=== PATIENT | female | born 1950 | race Caucasian/White ===

== ENCOUNTER 2019-11-01 08:23 | Outpatient (CLI) | payer MEDICARE, SELFPAY ==
[2019-11-05 04:49] LABS: Carcinoembryonic Antigen 0.6 ng/mL (0.0-2.4)
== END 2019-11-01 08:24 | disposition home or self-care (01) ==
PROVIDERS: PCP Internal Medicine
DX: C18.2 Malignant neoplasm of ascending colon (principal)
CPT/HCPCS: 36415; 82378

== ENCOUNTER 2020-02-06 07:43 | Outpatient (CLI) | payer MEDICARE, SELFPAY ==
[2020-02-06 07:57] LABS: Add Urine Microscopic? YES; Appearance Urine Clear (Clear); Bilirubin Urine Negative (Negative); Blood Urine Negative (Negative); Color Urine Yellow (Yellow); Glucose Urine UA Negative (Negative); Ketones Urine Trace (Negative); Leukocyte Esterase Ur 1+ (Negative); Nitrate Urine Negative (Negative); Protein Urine Negative (Negative); Specific Grav Ur >= 1.030 (1.010-1.020); Urobilinogen Urine 0.2 mg/dL (0.2-1.0)
[2020-02-06 07:57] LABS: Basophils Absolute Auto 0.03 K/mm3 (0.00-0.10); Basophils Percent Auto 0.4 % (0.0-1.0); Eosinophils Absolute Auto 0.08 K/mm3 (0.02-0.50); Eosinophils Percent Auto 1.2 % (1.0-6.0); Hematocrit 41.5 % (35.0-42.0); Hemoglobin 14.2 g/dL (11.7-13.8); Immature Granulocyte Absolute 0.02 K/mm3 (0.00-0.00); Immature Granulocyte Percent A 0.3 % (0.0-0.0); Lymphocytes Absolute Auto 1.68 K/mm3 (1.10-4.50); Lymphocytes Percent Auto 24.7 % (18.0-42.0); Mean Corpuscular HGB Conc 34.2 g/dL (32.0-36.0); Mean Corpuscular Hemoglobin 32.3 pg (27.0-31.0); Mean Corpuscular Volume 94.5 fL (78.0-102.0); Mean Platelet Volume 9.7 fl (9.2-11.8); Monocytes Absolute Auto 0.52 K/mm3 (0.10-0.90); Monocytes Percent Auto 7.7 % (2.0-11.0); Neutrophils Absolute Auto 4.5 K/mm3 (1.7-7.2); Neutrophils Percent Auto 65.7 % (50.0-70.0); Platelet Count Result 194 K/mm3 (150-420); Red Blood Count 4.39 M/mm3 (4.20-5.40); Red Cell Distribution Width 11.6 % (11.6-14.4); White Blood Count 6.8 K/mm3 (4.8-10.8)
[2020-02-06 08:01] LABS: Bacteria Urine 1+ /hpf; RBC Urine 0-2 /hpf (0-2); Squamous Epithelial Cell Urine Moderate /hpf (Few)
[2020-02-06 08:02] LABS: Mucus Urine Moderate /lpf
[2020-02-06 08:19] LABS: Creatinine Urine 286.11 mg/dL (40-278); MALB Creatinine Ratio 6.7 mg/g (0-30); Microalbumin Urine Random 19.4 mg/L
[2020-02-06 08:49] LABS: Alanine Aminotransferase 37 U/L (14-59); Albumin Level 4.2 g/dL (3.4-5.0); Alkaline Phosphatase 82 U/L (46-116); Anion Gap 10.4 mmol/L (7-16); Aspartate Amino Transferase 20 U/L (15-37); Blood Urea Nitrogen 16 mg/dL (7-18); Calcium 9.3 mg/dL (8.5-10.1); Carbon Dioxide 31 mmol/L (21-32); Chloride 105 mmol/L (98-108); Cholesterol 149 mg/dL (0-200); Estimated Glomerular Filt Rate 60; Glucose 172 mg/dL (70-99); HDL Direct 45 mg/dL (40-60); LDL Cholesterol Calculated 69 mg/dL (<130); Osmolality Calculated 299 mOsm/kg (285-295); Potassium 4.4 mmol/L (3.5-5.1); Sodium 142 mmol/L (136-145); Total Protein 7.2 g/dL (6.4-8.2); Triglycerides 176 mg/dL (0-150)
[2020-02-11 20:16] LABS: Carcinoembryonic Antigen 0.7 ng/mL (0.0-2.4)
== END 2020-02-06 07:44 | disposition home or self-care (01) ==
LOC: CHSLAB 07:46
PROVIDERS: PCP Internal Medicine
DX: C18.2 Malignant neoplasm of ascending colon (principal); E11.9 Type 2 diabetes mellitus without complications; I10 Essential (primary) hypertension; C18.9 Malignant neoplasm of colon, unspecified
CPT/HCPCS: 36415; 80053; 80061; 81001; 82043; 82378; 83036; 85025

== ENCOUNTER 2020-02-29 13:03 | Outpatient (CLI) | payer MEDICARE, SELFPAY ==
--- NOTE | ~2020-02-29 | MM_ITS ---
EXAMINATION: MM screening juan c BI w des HISTORY: Screening TECHNIQUE: Craniocaudal and mediolateral oblique 3-D tomosynthesis images were obtained and synthetic 2-D images were generated. CAD analysis was submitted and interpreted. COMPARISON: Comparison to multiple prior studies sequentially, with oldest reviewed study dated 04/25. BREAST PARENCHYMAL COMPOSITION: There are scattered areas of fibroglandular density. FINDINGS: The right breast is stable without evidence for malignancy. There are developing nodular de nsities in the subareolar location of the left breast. IMPRESSION: 1. Nodular left breast asymmetries have developed in the subareolar location. 2. Additional mammographic views and possible breast ultrasound are recommended. BI-RADS Category 0: Incomplete: Needs additional imaging evaluation. Reviewed, dictated and finalized at location A. IMPRESSION: 1. Nodular left breast asymmetries have developed in the subareolar location. 2. Additional mammographic views and possible breast ultrasound are recommended . BI-RADS Category 0: Incomplete: Needs additional imaging evaluation.
== END 2020-02-29 13:04 | disposition home or self-care (01) ==
LOC: CHSIMG 13:06
PROVIDERS: PCP Internal Medicine; Visit Provider Internal Medicine
DX: Z12.31 Encounter for screening mammogram for malignant neoplasm of breast (principal)
CPT/HCPCS: 77063; 77067

== ENCOUNTER 2020-04-11 09:50 | Outpatient (CLI) | payer MEDICARE, SELFPAY ==
--- NOTE | ~2020-04-11 | MMUS_ITS ---
EXAMINATION: MM diagnostic juan c LT w des, US breast LT complete HISTORY: Nodule left breast asymmetries on screening mammogram of 02/29/2020 TECHNIQUE: Additional 3-D tomosynthesis images of the left breast were performed and synthetic 2-D im ages were generated. Rolled medial craniocaudal and rolled lateral craniocaudal views. CAD analysis w as submitted and interpreted. High resolution complete left breast ultrasound was performed. COMPARISON: 02/29/2020 bilateral digital screening mammogram FINDINGS: MAMMOGRAPHIC FINDINGS: Surgical clips are present in the posterior aspect of the upper outer quadrant of the left breast. There is nodularity of the stroma throughout the left breast. Small masses are not excluded. Left irina ast ultrasound examination was performed. ULTRASOUND: 2:00 2 cm from nipple: Parallel circumscribed 1.7 x 2.6 mm x 4.3 mm hypoechoic area without internal vascularity or posterior shadowing. Postoperative change is noted at 2:00 area. There is an irregular up to 3.3 x 8.3 mm hypoechoic mass with shadowing at 4:00 2 cm from the nipple. Ultrasound-guided biopsy is recommended. 4:00 2 cm from nipple: 3.6 x 2.6 x 4.1 mm cyst 4:00 2 cm from nipple: 2.6 x 1.9 mm cyst 9:00 1 cm from nipple: Elongated septated complicated cyst measuring 2.7 x 11.5 x 8.4 mm 10:00 3 cm from nipple: 3.7 x 2.1 x 1.8 mm circumscribed hypoechoic lesion without internal vasculari ty or suspicious shadowing 11:00 3 cm from nipple: 5.5 x 6.2 mm cyst 11:00 3 cm from nipple: 2.7 x 4.4 mm complicated cyst IMPRESSION: 1. Irregular 3.3 x 8.3 mm hypoechoic mass with shadowing at 4:00 2 cm from nipple; 2. Ultrasound-guided biopsy is recommended BI-RADS category 4, suspicious findings. Dr. Amado telephoned the report and ultrasound guided biopsy recommendation of left breast at 4:00 pos ition to [place] at Dr. Erwin's office on 04/11/2020 at 1138 hours Reviewed, dictated and finalized at location A. IMPRESSION: 1. Irregular 3.3 x 8.3 mm hypoechoic mass with shadowing at 4:00 2 cm from nipp le; 2. Ultrasound-guided biopsy is recommended BI-RADS category 4, suspicious findings. Dr. Amado telephoned the report and ultrasound guided biopsy recommendation of l eft breast at 4:[address] [place] [address] Erwin's office on 04/11/2020 at 1138 hours
== END 2020-04-11 09:51 | disposition home or self-care (01) ==
LOC: CHSIMG 09:52
PROVIDERS: PCP Internal Medicine; Visit Provider Internal Medicine
DX: R92.8 Other abnormal and inconclusive findings on diagnostic imaging of breast (principal)
CPT/HCPCS: 76641; 77061; 77065; G0279

== ENCOUNTER 2020-05-01 08:48 | Outpatient (CLI) | payer MEDICARE, SELFPAY ==
--- NOTE | ~2020-05-01 | US_ITS ---
US breast LT limited 05/01/2020 09:46 Indication: Left breast mass seen on prior examination at 4:00, 2 cm from the nipple Procedure: High-resolution Limited left breast ultrasound Comparison: 04/11/2020 Findings: The hypoechoic structure of the left breast at 4:00, 2 cm from the nipple is no longer iden tified on the current study. No discrete mass is identified for biopsy purposes. Impression: 1: No residual mass in the left breast at 4:00 for biopsy. Short-term follow-up diagnostic left mammo gram and possible ultrasound recommended. BI-RADS CATEGORY 3-PROBABLY BENIGN FINDING RECOMMENDATION: 6 month follow up recommended. Reviewed, dictated and finalized at location A. Impression: 1: No residual mass in the left breast at 4:00 for biopsy. Short-term follow-up diagnostic left mammogram and possible ultrasound recommended. BI-RADS CATEGORY 3-PROBABLY BENIGN FINDING RECOMMENDATION: 6 month follow up recommended.
== END 2020-05-01 08:49 | disposition home or self-care (01) ==
PROVIDERS: PCP Internal Medicine; Visit Provider Internal Medicine
DX: N63.20 Unspecified lump in the left breast, unspecified quadrant (principal); R92.8 Other abnormal and inconclusive findings on diagnostic imaging of breast
CPT/HCPCS: 76642

== ENCOUNTER 2020-07-15 14:20 | Outpatient (CLI) | payer MEDICARE, SELFPAY ==
--- NOTE | ~2020-07-15 | XR_ITS ---
EXAMINATION: XR knee LT min 4V DATE: 07/15/2020 14:41 INDICATION: Left knee pain. TECHNIQUE: 4 views of left knee were obtained. COMPARISON: None. FINDINGS: Bone alignment is normal. No fracture. There is moderate osteoarthritis of medial and ospina lofemoral compartments and mild osteoarthritis of lateral compartment. No knee joint effusion. IMPRESSION: 1. Moderate left knee osteoarthritis. Reviewed, dictated and finalized at location A. FIRER HELPER
== END 2020-07-15 14:21 | disposition home or self-care (01) ==
LOC: CHSIMG 14:22
PROVIDERS: PCP Internal Medicine; Visit Provider Internal Medicine
DX: M25.562 Pain in left knee (principal)
CPT/HCPCS: 73564

== ENCOUNTER 2020-08-02 07:16 | Outpatient (CLI) | payer MEDICARE, SELFPAY ==
--- NOTE | ~2020-08-02 | MR_ITS ---
EXAMINATION: MR knee LT wo con DATE: 08/02/2020 08:42 INDICATION: Left knee pain TECHNIQUE: Magnetic resonance imaging (MRI) of the left knee was performed without intravenous contra st. Sequences included coronal PD-weighted FSE, coronal PD-weighted FS FSE, sagittal T2-weighted FSE , sagittal PD-weighted FS FSE and axial PD weighted fat saturated FSE. COMPARISON: Left knee radiographs dated 07/15/2020 FINDINGS: Medial compartment: Likely complex tear with predominant for near full-thickness radial component at the anterior body of the medial meniscus. Partial-thickness cartilage loss which appears to involve greater than 50% the cartilage thickness with mild chondral surface regular date but without degenerative subchondral españa ges at the anterior to central weightbearing medial femoral condyle. Lateral compartment: Lateral meniscus is normal. There is a partial-thickness chondral fissuring at the anterior weightbea ring lateral femoral condyle. Patellofemoral compartment: Deep chondral ulceration with underlying cortical irregularity and subarticular edema at the inferior aspect of the medial trochlea extending across the trochlear groove to the medial side of the latera l trochlea. Partial-thickness patellar cartilage loss with deep fissuring but without degenerative fuentes bchondral changes. Ligaments and tendons: Anterior and posterior cruciate ligaments are normal. The medial collateral ligament and fibular gretchen ateral ligament complex are normal. Mild distal quadriceps and proximal patellar tendinopathy with sm all patellar enthesophytes. The visualized medial and lateral hamstring tendons as well as the ilioti bial band are normal. Fluid: Physiologic amount of fluid in the joint space. No loose osteochondral bodies identified. Small James 's cyst. Osseous/other: 10 mm enchondroma with typical T2 hyperintense cluster of grape like appearance and with small amount of chondroid matrix evident on the radiographs. A couple small bone islands at the medial femoral co ndyle.. No fracture or other pathologic marrow replacing process. IMPRESSION: 1. Tear, likely complex/radial at the anterior body the medial meniscus. 2. Moderate patellofemoral and to lesser degree medial compartment osteoarthritis with high-grade tro chlear chondromalacia. 3. Small James's cyst. Reviewed, dictated and finalized at location A. ISION AGRONOMIST IMPRESSION: 1. Tear, likely complex/radial at the anterior body the medial meniscus. 2. Moderate patellofemoral and to lesser degree medial compartment osteoarthrit is with high-grade trochlear chondromalacia. 3. Small James's cyst.
== END 2020-08-02 07:17 | disposition home or self-care (01) ==
LOC: CHSIMG 07:17
PROVIDERS: PCP Internal Medicine; Visit Provider Internal Medicine
DX: M25.562 Pain in left knee (principal)
CPT/HCPCS: 73721

== ENCOUNTER 2020-08-26 05:00 | Outpatient (RCR) | payer MEDICARE, SELFPAY ==
--- NOTE | 2020-08-27 07:05 | PTOPEVAL ---
Thank you for referring Trish Monique to [facility].? The patient is scheduled to be seen for therapy? ____x/week for ___ weeks. Please review, sign, date and return this plan of care BOB. I agree with and certify that the following plan of care is medically necessary. Referring Physician Date Admitting Provider: Attending Provider: Hang Mcneil MD Referring Provider: *PT Outpatient Evaluation Start: 08/26/20 17:08 Freq: Status: Active Protocol: Document 08/26/20 17:05 Jaiden (Rec: 08/26/20 17:53 [facility] [id number]) Therapy Assessment Status Assessment Status Assessment Status Evaluation Evaluation Information Problem Diagnosis L knee pain, meniscus tear, OA Onset 07/02/20 Additional Evaluation Detail LEFS = 52% functionally declined Subjective Information patient reports she injured Query Text:As Reported By Patient/ her knee about 2 months ago. Family she reports sh was doing house work and a dining room chair hit her kn the knee and her knee buckled on her. she reports she waited a few weeks post injury before havin an x -ray. she reports she then took prednisone which did not help. she reports she then had an MRI which revealed a torn meniscus. patient reports she then saw a specialist. she reports she had an injection yesterday and is feeling much better. patient reports she follows up with the MD in 6 weeks. patient reports prior to injection, she had increased pain with walking and standing activities, especially any increased time participating in these activities. Prior Level of Function Comments Additional Prior Level of Function prior to injury at home, she Comments reports no issues. she reports she is still working. she reports she was limping for a few months after injury until injection yesterday. Pain Assessment Timing of Pain Assessment Timing of Pain Assessment Assessment Pain Scale Pain Scale Used Numeric (1 - 10) Self Report Pain Assessment Left K
== END 2020-09-04 10:19 | disposition home or self-care (01) ==
LOC: CHSPT 05:00
PROVIDERS: PCP Internal Medicine; Visit Provider Orthopaedic Surgery
DX: M17.12 Unilateral primary osteoarthritis, left knee (principal); S83.242A Other tear of medial meniscus, current injury, left knee, initial encounter
CPT/HCPCS: 97110; 97161; 97530

== ENCOUNTER 2020-09-19 11:11 | Outpatient (CLI) | payer MEDICARE, SELFPAY ==
[2020-09-19 11:30] LABS: Hemoglobin A1C 6.7 % (<5.7)
[2020-09-19 13:48] LABS: Alanine Aminotransferase 42 U/L (14-59); Albumin Level 4.6 g/dL (3.4-5.0); Alkaline Phosphatase 88 U/L (46-116); Anion Gap 6 mmol/L (8-16); Aspartate Amino Transferase 15 U/L (15-37); Bilirubin,Total 1.3 mg/dL (0.00-1.00); Blood Urea Nitrogen 19 mg/dL (7-18); Calcium 9.5 mg/dL (8.5-10.1); Carbon Dioxide 32 mmol/L (21-32); Chloride 102 mmol/L (98-108); Cholesterol 173 mg/dL (0-200); Estimated Glomerular Filt Rate 57; Glucose 172 mg/dL (70-99); HDL Direct 50 mg/dL (40-60); LDL Cholesterol Calculated 88 mg/dL (<130); Osmolality Calculated 296 mOsm/kg (285-295); Potassium 4.6 mmol/L (3.5-5.1); Sodium 140 mmol/L (136-145); Thyroid Stimulating Hormone 1.35 uIU/mL (0.36-3.74); Total Protein 7.4 g/dL (6.4-8.2); Triglycerides 174 mg/dL (0-150)
== END 2020-09-19 11:12 | disposition home or self-care (01) ==
LOC: CHSLAB 11:14
PROVIDERS: PCP Internal Medicine; Visit Provider Internal Medicine
DX: E11.9 Type 2 diabetes mellitus without complications (principal); I10 Essential (primary) hypertension
CPT/HCPCS: 36415; 80053; 80061; 83036; 84443

== ENCOUNTER 2021-07-03 12:00 | Outpatient (CLI) | payer MEDICARE, SELFPAY ==
[2021-07-03 12:46] LABS: Alanine Aminotransferase 38 U/L (14-59); Albumin Level 4.5 g/dL (3.4-5.0); Alkaline Phosphatase 97 U/L (46-116); Anion Gap 9 mmol/L (8-16); Aspartate Amino Transferase 17 U/L (15-37); Bilirubin,Total 1.1 mg/dL (0.00-1.00); Blood Urea Nitrogen 18 mg/dL (7-18); Calcium 9.6 mg/dL (8.5-10.1); Carbon Dioxide 31 mmol/L (21-32); Chloride 103 mmol/L (98-108); Estimated Glomerular Filt Rate 58; Glucose 129 mg/dL (70-99); Osmolality Calculated 299 mOsm/kg (285-295); Potassium 4.7 mmol/L (3.5-5.1); Sodium 143 mmol/L (136-145); Total Protein 7.5 g/dL (6.4-8.2)
[2021-07-08 04:17] LABS: Hepatitis A Antibody IgM Nonreactive; Hepatitis B Core Antibody Nonreactive (Nonreactive); Hepatitis B Surface Antigen Nonreactive (Nonreactive); Hepatitis C Signal to Cutoff 0.01 ratio (<1.00); Hepatitis C Virus Antibody Nonreactive (Nonreactive)
== END 2021-07-03 12:01 | disposition home or self-care (01) ==
LOC: CHSLAB 12:02
PROVIDERS: PCP Internal Medicine; Visit Provider Internal Medicine
DX: E11.9 Type 2 diabetes mellitus without complications (principal); R94.5 Abnormal results of liver function studies
CPT/HCPCS: 36415; 80053; 80074; 83036

== ENCOUNTER 2021-07-31 07:35 | Outpatient (CLI) | payer MEDICARE, SELFPAY ==
--- NOTE | ~2021-07-31 | MM_ITS ---
EXAMINATION: MM screening juan c BI w des HISTORY: Screening mammogram, history of right breast cancer TECHNIQUE: Craniocaudal and mediolateral oblique 3-D tomosynthesis images were obtained and synthetic 2-D images were generated. CAD analysis was submitted and interpreted. COMPARISON: 04/11/2020, 02/29/2020, 02/02/2019, 07/27/2018, 10/24/2017 BREAST PARENCHYMAL COMPOSITION: There are scattered areas of fibroglandular density. FINDINGS: There are stable lumpectomy changes of the right breast and excisional biopsy changes of th e left breast. A stable mass is also noted in the inner left breast. There is no evidence of suspicio us mass, calcification, or architectural distortion to suggest malignancy in either breast. There has been no suspicious interval change. IMPRESSION: 1. No mammographic evidence of malignancy. 2. Recommend routine screening mammography in one year. BI-RADS Category 2: Benign finding(s). Reviewed, dictated and finalized at location A. SUPERVISOR
== END 2021-07-31 07:36 | disposition home or self-care (01) ==
LOC: CHSIMG 07:36
PROVIDERS: PCP Internal Medicine; Visit Provider Internal Medicine
DX: Z12.31 Encounter for screening mammogram for malignant neoplasm of breast (principal)
CPT/HCPCS: 77063; 77067

== ENCOUNTER 2021-10-09 08:10 | Outpatient (CLI) | payer MEDICARE, SELFPAY ==
[2021-10-09 08:28] LABS: Hemoglobin A1C 5.8 % (<5.7)
[2021-10-09 08:30] LABS: Creatinine Urine 239.44 mg/dL (40-278); MALB Creatinine Ratio 21.2 mg/g (0-30)
[2021-10-09 09:04] LABS: Alanine Aminotransferase 33 U/L (14-59); Albumin Level 4.2 g/dL (3.4-5.0); Alkaline Phosphatase 81 U/L (46-116); Anion Gap 6 mmol/L (8-16); Aspartate Amino Transferase 15 U/L (15-37); Bilirubin,Total 0.9 mg/dL (0.00-1.00); Blood Urea Nitrogen 20 mg/dL (7-18); Calcium 8.9 mg/dL (8.5-10.1); Carbon Dioxide 30 mmol/L (21-32); Chloride 105 mmol/L (98-108); Cholesterol 140 mg/dL (0-200); Estimated Glomerular Filt Rate > 60; Glucose 137 mg/dL (70-99); HDL Direct 46 mg/dL (40-60); LDL Cholesterol Calculated 72 mg/dL (<130); Osmolality Calculated 296 mOsm/kg (285-295); Potassium 4.5 mmol/L (3.5-5.1); Sodium 141 mmol/L (136-145); Total Protein 6.9 g/dL (6.4-8.2); Triglycerides 110 mg/dL (0-150)
== END 2021-10-09 08:11 | disposition home or self-care (01) ==
LOC: CHSLAB 08:12
PROVIDERS: PCP Internal Medicine; Visit Provider Internal Medicine
DX: E11.9 Type 2 diabetes mellitus without complications (principal); I10 Essential (primary) hypertension
CPT/HCPCS: 36415; 80053; 80061; 82043; 83036

== ENCOUNTER 2022-03-05 08:47 | Outpatient (CLI) | payer MEDICARE, SELFPAY ==
--- NOTE | ~2022-03-05 | DEXA_ITS ---
Bone Density Report Name: LILY VALENCIA Age: 71 Sex: Female Ethnicity: White Date of : 1950 Indication: postmenopausal; screening for osteoporosis; parental hip fracture; height loss; prior fracture; cancer; Referring Provider: Oh Erwin Study: Bone densitometry was performed. Exam Date: March 05, 2022 Accession number: [id number] Bone Density: Region BMD T-score Z-score Classification AP Spine(L1-L4) 1.002 -0.4 1.9 Normal Femoral Neck (Left) 0.957 1.0 3.0 Normal Total Hip (Left) 1.069 1.0 2.7 Normal Femoral Neck (Right) 0.891 0.4 2.4 Normal Total Hip (Right) 0.966 0.2 1.9 Normal Femoral Neck Mean 0.924 0.7 2.7 Normal Total Hip Mean 1.017 0.6 2.3 Normal World Health Organization criteria for BMD impression classify patients as: Normal (T-score at or above -1.0), Osteopenia (T-score between -1.0 and -2.5), or Osteoporosis (T-score at or below -2.5). 10-year Fracture Risk: FRAX not reported because: All T-scores for Spine Total, Hip Total, Femoral Neck at or above -1.0 Clinical Information Provided by Patient: Has had a low trauma fracture Parent has had a hip fracture Has used the following medications: HRT (i.e. estrogen/hormone therapy), Vitamin D, Calcium Has the following medical conditions: Cancer Patient maximum height was 67 Menopause Age: 56 No regular weight bearing exercise Onset of menses at age 9 Number of children 2 Impression: The patient has normal bone mass. The patient has risk factors, including: parental hip fracture, previous fracture. Discussion: BONE DENSITY IS ABOVE THE MINIMUM DESIRABLE LEVEL AT ALL SKELETAL SITES TESTED. This patient?s bone mineral density is above the minimum desirable level (T-score -1.0 or better) at all sites measured. The patient should follow a healthful lifestyle (good nutrition with adequate calcium and vitamin D, and appropriate weight-bearing exercise). Follow-Up: Consider repeating this study in 5 years or sooner if there is some new clinical indication. Reported by: Dr. Chaim Harding on 03/05/2022 9:12:00 AM. Reviewed, dictated and finalized at location ALizzie ALEXANDRE
== END 2022-03-05 08:48 | disposition home or self-care (01) ==
PROVIDERS: PCP Internal Medicine; Visit Provider Internal Medicine
DX: Z78.0 Asymptomatic menopausal state (principal)
CPT/HCPCS: 77080

== ENCOUNTER 2022-04-23 09:06 | Outpatient (CLI) | payer MEDICARE, SELFPAY ==
[2022-04-23 09:16] LABS: Basophils Absolute Auto 0.03 K/mm3 (0.00-0.10); Basophils Percent Auto 0.5 % (0.0-1.0); Eosinophils Absolute Auto 0.05 K/mm3 (0.02-0.50); Eosinophils Percent Auto 0.8 % (1.0-6.0); Hematocrit 40.5 % (35.0-42.0); Hemoglobin 13.5 g/dL (11.7-13.8); Immature Granulocyte Absolute 0.03 K/mm3 (0.00-0.00); Immature Granulocyte Percent A 0.5 % (0.0-0.0); Lymphocytes Absolute Auto 1.56 K/mm3 (1.10-4.50); Lymphocytes Percent Auto 24.8 % (18.0-42.0); Mean Corpuscular HGB Conc 33.3 g/dL (32.0-36.0); Mean Corpuscular Hemoglobin 31.9 pg (27.0-31.0); Mean Corpuscular Volume 95.7 fL (78.0-102.0); Mean Platelet Volume 9.7 fl (9.2-11.8); Monocytes Absolute Auto 0.36 K/mm3 (0.10-0.90); Monocytes Percent Auto 5.7 % (2.0-11.0); Neutrophils Absolute Auto 4.3 K/mm3 (1.7-7.2); Neutrophils Percent Auto 67.7 % (50.0-70.0); Platelet Count Result 199 K/mm3 (150-420); Red Blood Count 4.23 M/mm3 (4.20-5.40); Red Cell Distribution Width 11.6 % (11.6-14.4); White Blood Count 6.3 K/mm3 (4.8-10.8)
[2022-04-23 09:19] LABS: Add Urine Microscopic? YES; Appearance Urine Clear (Clear); Bilirubin Urine Negative (Negative); Blood Urine Negative (Negative); Color Urine Yellow (Yellow); Glucose Urine UA Negative (Negative); Ketones Urine Negative (Negative); Leukocyte Esterase Ur 3+ (Negative); Nitrate Urine Negative (Negative); Protein Urine Negative (Negative); Specific Grav Ur 1.015 (1.010-1.020); Urobilinogen Urine 0.2 mg/dL (0.2-1.0); pH Urine 6.5 (5.0-8.0)
[2022-04-23 09:22] LABS: RBC Urine None seen /hpf (0-2)
[2022-04-23 09:23] LABS: Bacteria Urine 2+ /hpf; Squamous Epithelial Cell Urine Moderate /hpf (Few)
[2022-04-23 09:43] LABS: Alanine Aminotransferase 38 U/L (14-59); Albumin Level 4.2 g/dL (3.4-5.0); Alkaline Phosphatase 87 U/L (46-116); Anion Gap 3 mmol/L (8-16); Aspartate Amino Transferase 20 U/L (15-37); Blood Urea Nitrogen 13 mg/dL (7-18); Calcium 9.1 mg/dL (8.5-10.1); Carbon Dioxide 33 mmol/L (21-32); Chloride 106 mmol/L (98-108); Cholesterol 148 mg/dL (0-200); Estimated Glomerular Filt Rate > 60; Glucose 141 mg/dL (70-99); HDL Direct 47 mg/dL (40-60); LDL Cholesterol Calculated 68 mg/dL (<130); Osmolality Calculated 296 mOsm/kg (285-295); Potassium 4.3 mmol/L (3.5-5.1); Sodium 142 mmol/L (136-145); Thyroid Stimulating Hormone 2.33 uIU/mL (0.36-3.74); Total Protein 7.1 g/dL (6.4-8.2); Triglycerides 167 mg/dL (0-150)
== END 2022-04-23 09:07 | disposition home or self-care (01) ==
LOC: CHSLAB 09:09
PROVIDERS: PCP Internal Medicine; Visit Provider Internal Medicine
DX: E78.5 Hyperlipidemia, unspecified (principal); I10 Essential (primary) hypertension; E11.9 Type 2 diabetes mellitus without complications
CPT/HCPCS: 36415; 80053; 80061; 81001; 83036; 84443; 85025

== ENCOUNTER 2022-08-06 08:04 | Outpatient (CLI) | payer MEDICARE, SELFPAY ==
--- NOTE | ~2022-08-06 | MM_ITS ---
EXAMINATION: MM screening [facility] BI w des HISTORY: Screening TECHNIQUE: Craniocaudal and mediolateral oblique 3-D tomosynthesis images were obtained and synthetic 2-D images were generated. CAD analysis was submitted and interpreted. COMPARISON: Comparison to multiple prior studies sequentially, with oldest reviewed study dated 09/2018. BREAST PARENCHYMAL COMPOSITION: There are scattered areas of fibroglandular density. FINDINGS: Stable bilateral surgical changes of the breasts. Stable nodular asymmetries centered in th e lower inner quadrant of the left breast. There is no evidence of suspicious mass, calcification, or architectural distortion to suggest malignancy in either breast. There has been no suspicious interv al change. IMPRESSION: 1. No mammographic evidence of malignancy. 2. Recommend routine screening mammography in one year. BI-RADS Category 2: Benign finding(s). Reviewed, dictated and finalized at location A. OOD PACKER
== END 2022-08-06 08:05 | disposition home or self-care (01) ==
LOC: CHSIMG 08:06
PROVIDERS: PCP Internal Medicine; Visit Provider Internal Medicine
DX: Z12.31 Encounter for screening mammogram for malignant neoplasm of breast (principal)
CPT/HCPCS: 77063; 77067

== ENCOUNTER 2022-11-20 09:42 | Outpatient (CLI) | payer MEDICARE, SELFPAY ==
[2022-11-20 10:02] LABS: Creatinine Urine 262.05 mg/dL (40-278); MALB Creatinine Ratio 9.1 mg/g (0-30); Microalbumin Urine Random 23.9 mg/L
[2022-11-20 10:05] LABS: Hemoglobin A1C 6.4 % (<5.7)
[2022-11-20 10:21] LABS: Alanine Aminotransferase 43 U/L (14-59); Albumin Level 3.9 g/dL (3.4-5.0); Alkaline Phosphatase 82 U/L (46-116); Anion Gap 6 mmol/L (8-16); Aspartate Amino Transferase 20 U/L (15-37); Bilirubin,Total 0.7 mg/dL (0.00-1.00); Blood Urea Nitrogen 14 mg/dL (7-18); Carbon Dioxide 33 mmol/L (21-32); Chloride 106 mmol/L (98-108); Cholesterol 151 mg/dL (0-200); Estimated Glomerular Filt Rate > 60; Glucose 138 mg/dL (70-99); HDL Direct 51 mg/dL (40-60); LDL Cholesterol Calculated 72 mg/dL (<130); Osmolality Calculated 302 mOsm/kg (285-295); Potassium 4.4 mmol/L (3.5-5.1); Sodium 145 mmol/L (136-145); Total Protein 6.8 g/dL (6.4-8.2); Triglycerides 142 mg/dL (0-150)
== END 2022-11-20 09:43 | disposition home or self-care (01) ==
LOC: CHSLAB 09:44
PROVIDERS: PCP Internal Medicine; Visit Provider Internal Medicine
DX: E11.9 Type 2 diabetes mellitus without complications (principal); E78.5 Hyperlipidemia, unspecified
CPT/HCPCS: 36415; 80053; 80061; 82043; 83036

== ENCOUNTER 2023-06-21 10:56 | Outpatient (CLI) | payer MEDICARE, SELFPAY ==
[2023-06-21 11:31] LABS: Basophils Absolute Auto 0.01 K/mm3 (0.00-0.10); Basophils Percent Auto 0.1 % (0.0-1.0); Eosinophils Absolute Auto 0.03 K/mm3 (0.02-0.50); Eosinophils Percent Auto 0.4 % (1.0-6.0); Hematocrit 39.5 % (35.0-42.0); Hemoglobin 13.2 g/dL (11.7-13.8); Immature Granulocyte Absolute 0.04 K/mm3 (0.00-0.00); Immature Granulocyte Percent A 0.6 % (0.0-0.0); Lymphocytes Percent Auto 23.4 % (18.0-42.0); Mean Corpuscular HGB Conc 33.4 g/dL (32.0-36.0); Mean Corpuscular Hemoglobin 32.1 pg (27.0-31.0); Mean Corpuscular Volume 96.1 fL (78.0-102.0); Mean Platelet Volume 9.6 fl (9.2-11.8); Monocytes Absolute Auto 0.42 K/mm3 (0.10-0.90); Monocytes Percent Auto 6.1 % (2.0-11.0); Neutrophils Absolute Auto 4.7 K/mm3 (1.7-7.2); Neutrophils Percent Auto 69.4 % (50.0-70.0); Platelet Count Result 191 K/mm3 (150-420); Red Blood Count 4.11 M/mm3 (4.20-5.40); Red Cell Distribution Width 11.7 % (11.6-14.4); White Blood Count 6.8 K/mm3 (4.8-10.8)
[2023-06-21 12:11] LABS: Alanine Aminotransferase 39 U/L (14-59); Albumin Level 3.9 g/dL (3.4-5.0); Alkaline Phosphatase 86 U/L (46-116); Anion Gap 6 mmol/L (8-16); Aspartate Amino Transferase 15 U/L (15-37); Blood Urea Nitrogen 19 mg/dL (7-18); Calcium 9.4 mg/dL (8.5-10.1); Carbon Dioxide 33 mmol/L (21-32); Chloride 104 mmol/L (98-108); Estimated Glomerular Filt Rate 58; Glucose 143 mg/dL (70-99); Osmolality Calculated 300 mOsm/kg (285-295); Potassium 4.7 mmol/L (3.5-5.1); Sodium 143 mmol/L (136-145); Thyroid Stimulating Hormone 1.37 uIU/mL (0.36-3.74)
== END 2023-06-21 10:57 | disposition home or self-care (01) ==
PROVIDERS: PCP Internal Medicine; Visit Provider Internal Medicine
DX: I10 Essential (primary) hypertension (principal); E11.9 Type 2 diabetes mellitus without complications
CPT/HCPCS: 36415; 80053; 83036; 84443; 85025

== ENCOUNTER 2023-08-12 07:54 | Outpatient (CLI) | payer MEDICARE, SELFPAY ==
--- NOTE | ~2023-08-12 | MM_ITS ---
EXAMINATION: MM screening [facility] BI w des HISTORY: Screening TECHNIQUE: Craniocaudal and mediolateral oblique 3-D tomosynthesis images were obtained and synthetic 2-D images were generated. CAD analysis was submitted and interpreted. COMPARISON: Comparison to multiple prior studies sequentially, with oldest reviewed study dated 02/02. BREAST PARENCHYMAL COMPOSITION: Breast composed of scattered areas of fibroglandular density FINDINGS: Stable architectural distortion in both breasts with associated surgical clips, consistent with previous right lumpectomy and left breast biopsy. There is no evidence of suspicious mass, calci fication, or architectural distortion to suggest malignancy in either breast. There has been no suspi cious interval change. IMPRESSION: 1. No mammographic evidence of malignancy. 2. Recommend routine screening mammography in one year. BI-RADS Category 2: Benign finding(s). Reviewed, dictated and finalized at location A. ERCIAL HELICOPTER PILOT
== END 2023-08-12 07:55 | disposition home or self-care (01) ==
LOC: CHSIMG 07:55
PROVIDERS: PCP Internal Medicine; Visit Provider Internal Medicine
DX: Z12.31 Encounter for screening mammogram for malignant neoplasm of breast (principal)
CPT/HCPCS: 77063; 77067

== ENCOUNTER 2024-01-07 10:24 | Outpatient (CLI) | payer MEDICARE, SELFPAY ==
[2024-01-07 10:49] LABS: Basophils Absolute Auto 0.02 K/mm3 (0.00-0.10); Basophils Percent Auto 0.3 % (0.0-1.0); Eosinophils Absolute Auto 0.07 K/mm3 (0.02-0.50); Eosinophils Percent Auto 1.1 % (1.0-6.0); Hematocrit 41.6 % (35.0-42.0); Hemoglobin 14.1 g/dL (11.7-13.8); Immature Granulocyte Absolute 0.04 K/mm3 (0.00-0.00); Immature Granulocyte Percent A 0.6 % (0.0-0.0); Lymphocytes Absolute Auto 1.65 K/mm3 (1.10-4.50); Lymphocytes Percent Auto 25.7 % (18.0-42.0); Mean Corpuscular HGB Conc 33.9 g/dL (32-36); Mean Corpuscular Hemoglobin 32.5 pg (27.0-31.0); Mean Corpuscular Volume 95.9 fL (78.0-102.0); Mean Platelet Volume 9.6 fl (9.2-11.8); Monocytes Absolute Auto 0.37 K/mm3 (0.10-0.90); Monocytes Percent Auto 5.8 % (2.0-11.0); Neutrophils Absolute Auto 4.28 K/mm3 (1.70-7.20); Neutrophils Percent Auto 66.5 % (50.0-70.0); Platelet Count Result 215 K/mm3 (150-420); Red Blood Count 4.34 M/mm3 (4.20-5.40); Red Cell Distribution Width 11.5 % (11.6-14.4); White Blood Count 6.4 K/mm3 (4.8-10.8)
[2024-01-07 11:07] LABS: Alanine Aminotransferase 34 U/L (14-59); Albumin Level 4.1 g/dL (3.4-5.0); Alkaline Phosphatase 91 U/L (46-116); Anion Gap 7 mmol/L (4-12); Aspartate Amino Transferase 17 U/L (15-37); Blood Urea Nitrogen 13 mg/dL (7-18); Calcium 9.2 mg/dL (8.5-10.1); Carbon Dioxide 31 mmol/L (21-32); Chloride 104 mmol/L (98-108); Cholesterol 154 mg/dL (0-200); Estimated Glomerular Filt Rate > 60; Glucose 169 mg/dL (70-99); HDL Direct 49 mg/dL (40-60); LDL Cholesterol Calculated 64 mg/dL (<130); Osmolality Calculated 298 mOsm/kg (285-295); Potassium 4.2 mmol/L (3.5-5.1); Sodium 142 mmol/L (136-145); Thyroid Stimulating Hormone 1.98 uIU/mL (0.36-3.74); Total Protein 7.4 g/dL (6.4-8.2); Triglycerides 204 mg/dL (0-150)
[2024-01-07 14:02] LABS: Bilirubin Urine Negative (Negative); Blood Urine Negative (Negative); Color Urine Light Yellow (Yellow); Glucose Urine UA Negative (Negative); Ketones Urine Negative (Negative); Leukocyte Esterase Ur 3+ LEU/UL (Negative); Nitrate Urine Negative (Negative); Protein Urine Negative (Negative); Specific Grav Ur 1.025 (1.010-1.020); Urobilinogen Urine 0.2 mg/dL (0.2-1.0)
[2024-01-07 14:11] LABS: Add Urine Microscopic? YES; Appearance Urine Sl Cloudy (Clear); WBC Urine 16-20 /hpf (0-3)
[2024-01-07 14:12] LABS: Amorphous Sediment Urine Moderate; Bacteria Urine 2+ /hpf; MALB Creatinine Ratio 8.6 mg/g (0-30); Microalbumin Urine Random 21.8 mg/L; Squamous Epithelial Cell Urine Moderate /hpf (Few)
[2024-01-09 03:46] LABS: Hemoglobin A1C 6.9 % (<5.7)
== END 2024-01-07 10:25 | disposition home or self-care (01) ==
LOC: CHSLAB 10:27
PROVIDERS: PCP Internal Medicine; Visit Provider Internal Medicine
DX: E11.9 Type 2 diabetes mellitus without complications (principal); I10 Essential (primary) hypertension; E78.5 Hyperlipidemia, unspecified; R82.90 Unspecified abnormal findings in urine
CPT/HCPCS: 36415; 80053; 80061; 81001; 82043; 83036; 84443; 85025; 87086; 87088

== ENCOUNTER 2024-01-18 08:00 | Outpatient (CLI) | payer MEDICARE, SELFPAY ==
--- NOTE | ~2024-01-18 | XR_ITS ---
EXAMINATION: XR knee LT min 4V DATE: 01/18/2024 08:31 INDICATION: Bilateral primary osteoarthritis of knee. TECHNIQUE: 4 views of left knee including standing views were obtained. COMPARISON: Left knee radiographs 01/23/2021 FINDINGS: Bone alignment is normal. No fracture. There is moderate osteoarthritis of medial compartme nt and mild osteoarthritis of lateral and patellofemoral compartments. No knee joint effusion. IMPRESSION: 1. Moderate left knee osteoarthritis. Reviewed, dictated and finalized at location A.
--- NOTE | ~2024-01-18 | XR_ITS ---
XR knee RT min 4V Ordering provider: Hang Mcneil MD History: . M17.0 - Bilateral primary osteoarthritis of knee . Comparison: November 26, 2008 FINDINGS: BONES: No acute fracture or dislocation. JOINT SPACES: Narrowing of the medial compartment is noted. Narrowing of the patellofemoral joint wit h marginal osteophytes. SOFT TISSUES: Normal. IMPRESSION: No acute osseous abnormality right knee. Moderate to severe osteoarthritic changes of the right knee. Reviewed, dictated and finalized at location A.
== END 2024-01-18 08:01 | disposition home or self-care (01) ==
LOC: ANHIMG 08:03
PROVIDERS: PCP Internal Medicine; Visit Provider Orthopaedic Surgery
DX: M17.0 Bilateral primary osteoarthritis of knee (principal)
CPT/HCPCS: 73564

== ENCOUNTER 2024-07-19 11:38 | Outpatient (CLI) | payer MEDICARE, SELFPAY ==
[2024-07-19 12:10] LABS: Basophils Absolute Auto 0.03 K/mm3 (0.00-0.10); Basophils Percent Auto 0.4 % (0.0-1.0); Eosinophils Absolute Auto 0.05 K/mm3 (0.02-0.50); Eosinophils Percent Auto 0.7 % (1.0-6.0); Hematocrit 38.6 % (35.0-42.0); Hemoglobin 13.4 g/dL (11.7-13.8); Immature Granulocyte Absolute 0.03 K/mm3 (0.00-0.00); Immature Granulocyte Percent A 0.4 % (0.0-0.0); Lymphocytes Absolute Auto 1.69 K/mm3 (1.10-4.50); Lymphocytes Percent Auto 23.5 % (18.0-42.0); Mean Corpuscular HGB Conc 34.7 g/dL (32-36); Mean Corpuscular Hemoglobin 32.3 pg (27.0-31.0); Mean Platelet Volume 9.7 fl (9.2-11.8); Monocytes Absolute Auto 0.42 K/mm3 (0.10-0.90); Monocytes Percent Auto 5.8 % (2.0-11.0); Neutrophils Absolute Auto 4.96 K/mm3 (1.70-7.20); Neutrophils Percent Auto 69.2 % (50.0-70.0); Platelet Count Result 196 K/mm3 (150-420); Red Blood Count 4.15 M/mm3 (4.20-5.40); Red Cell Distribution Width 11.7 % (11.6-14.4); White Blood Count 7.2 K/mm3 (4.8-10.8)
[2024-07-19 12:18] LABS: Creatinine Urine 253.32 mg/dL (40-278); MALB Creatinine Ratio 9.3 mg/g (0-30); Microalbumin Urine Random 23.7 mg/L
[2024-07-19 13:37] LABS: Alanine Aminotransferase 36 U/L (14-59); Albumin Level 4.3 g/dL (3.4-5.0); Alkaline Phosphatase 97 U/L (46-116); Anion Gap 12 mmol/L (4-12); Aspartate Amino Transferase 14 U/L (15-37); Blood Urea Nitrogen 12 mg/dL (7-18); Calcium 9.4 mg/dL (8.5-10.1); Carbon Dioxide 28 mmol/L (21-32); Chloride 105 mmol/L (98-108); Cholesterol 163 mg/dL (0-200); Estimated Glomerular Filt Rate > 60; Glucose 168 mg/dL (70-99); HDL Direct 53 mg/dL (40-60); LDL Cholesterol Calculated 74 mg/dL (<130); Osmolality Calculated 303 mOsm/kg (285-295); Potassium 4.1 mmol/L (3.5-5.1); Sodium 145 mmol/L (136-145); Thyroid Stimulating Hormone 1.57 uIU/mL (0.36-3.74); Total Protein 6.9 g/dL (6.4-8.2); Triglycerides 179 mg/dL (0-150)
== END 2024-07-19 11:39 | disposition home or self-care (01) ==
LOC: CHSLAB 11:41
PROVIDERS: PCP Internal Medicine; Visit Provider Internal Medicine
DX: E78.5 Hyperlipidemia, unspecified (principal); I10 Essential (primary) hypertension; E11.9 Type 2 diabetes mellitus without complications
CPT/HCPCS: 36415; 80053; 80061; 82043; 83036; 84443; 85025

== ENCOUNTER 2024-08-24 07:52 | Outpatient (CLI) | payer MEDICARE, SELFPAY ==
--- NOTE | ~2024-08-24 | MM_ITS ---
EXAMINATION: MM screening [facility] BI w des HISTORY: Screening TECHNIQUE: Craniocaudal and mediolateral oblique 3-D tomosynthesis images were obtained and synthetic 2-D images were generated. CAD analysis was submitted and interpreted. COMPARISON: Comparison to multiple prior studies sequentially, with oldest reviewed study dated 04/11. BREAST PARENCHYMAL COMPOSITION: Not dense: There are scattered areas of fibroglandular density. FINDINGS: There are stable surgical changes in the left breast, consistent with previous biopsy. Ther e are lumpectomy changes in the right breast which are unchanged. There are stable left breast masses presumably benign given the lack of interval change. IMPRESSION: 1. No mammographic evidence of malignancy. No significant interval change. 2. Recommend routine screening mammography in one year. BI-RADS Category 2: Benign finding(s). Reviewed, dictated and finalized at location A. [facility]
--- OUTSIDE RECORDS SUMMARY | 2024-08-24 07:59 | XMS_ITS | Encounter Summary ---
Author Organization [facility] Healthcare Address [address] [place] [address] Care Team Providers Care Broach Setter Name Role Phone Oh Erwin MD Primary Care Provider [phone] Kunal Fritz MD Unavailable + Radu Alvarado MD Unavailable [phone] Encounter Details Date Type Department Care Team (Late st Contact Info) Description 05/19/[address] [facility] End[facility] at [facility] [address] [place] [id number] Hans Magallanes RN Social History Tobacco Use Types Packs/Day Years Used Date Smoking Tobacco: Never Smokeless Tobacco: Never Alcohol Use Standard Drinks/Week Comments Not Currently 0 (1 standard drink = 0.6 oz pur e alcohol) AUDIT-C Answer Date Recorded Q1: How often do you have a drink containing alc ohol? Never 05/19/2023 Average Number of Drinks Not on file 023 Frequency of Binge Drinking Not on file 04/25 Personal Safety Answer Date Recorded Have you ever been in or are you currently in a harmful physical or emotional relationship or is someone making you feel afraid or unsafe? Denies 05/19/2023 Comments No Sex and Gender Information Value Date Recorded Sex Assigned at Not on file Legal Sex Female 6:36 PM [employer] Gender Identity Not on file Sexual Orientation Not on file documented as of this encounter Plan of Treatment Not on file documented as of this encounter Visit Diagnoses Not on filedocumented in this encounter Care Teams Broach Setter Relationship Specialty Start Date End Date Oh Erwin MD PCP - General Internal Medicine 03/09/19 Kunal Fritz MD Application Internship Gastroenterology 04/03/19 Radu Alvarado MD Surgeon Colon and Rectal Surgery 05/30/19 documented as of this encounter
--- OUTSIDE RECORDS SUMMARY | 2024-08-24 07:59 | XMS_ITS | Clinical Summary ---
Author Organization [facility] Address [address] [place] [address]. [place], [place] [id number] [place] [id number] Care Team Providers Care Air/Ocean Export Clerk Name Role Phone Unavailable Primary Care Provider Unavailabl e Social History Tobacco Use Types Packs/Day Years Used Date Smoking Tobacco: Never Assessed Comments Unknown Sex and Gender Information Value Date Recorded Sex Assigned at Not on file Legal Sex Female 7:41 AM CDT Gender Identity Not on file Sexual Orientation Not on file Plan of Treatment Health Maintenance Due Date Last Done Comments Colorectal Cancer Screening Colonoscopy (10 Years) 1950 Hepatitis C 1966 DTaP, Tdap and Td Vaccines ( 1 - Tdap) 1967 Zoster Vaccines (1 of 2) 1998 Dexa Scan (General) 2013 Pneumococcal Vaccine: 65+ Ye ars (1 of 1 - PCV) 2013 RSV Immunization or 60+ Years (1 - 1-dose 75+ series) 2023 COVID-19 Vaccine ( - 2023-2 5 season) 2024 Influenza Adult (#1) 2024 Meningococcal B Vaccine Aged Out No l onger eligible based on patient's age to complete this topic Meningococcal Vaccine Aged Out No eusebia angus eligible based on patient's age to complete this topic RSV Immunizations Under 20 Months Aged Out No longer eligible based on patient's age to complete this topic
--- OUTSIDE RECORDS SUMMARY | 2024-08-24 07:59 | XMS_ITS ---
Author Organization [facility] Address [address] [place] [address] Care Team Providers Care Marine Geologist Name Role Phone Oh Erwin MD Primary Care Provider [phone] Kunal Fritz MD Unavailable + Radu Alvarado MD Unavailable [phone] Active Problems Problem Noted Date Diagnosed Date Polyp of nasal cavity 06/01/2024 Assessment & Plan (06/01/2024 10:14 AM PAINT PREP TECHNICIAN): Ushaped pillow or Total pillow donut shape to take pressure off the Left ear Bactroban ointment to left ear twice daily If nose bleeds return, Nasal saline spray (Simply saline, [employer]ies, [place], [place]) 2 second sprays or 2 squeezes into each nostril while looking down over the sink, do not need to sniff in daily Call if no improvement in next few weeks CT sinus, consider Nasal Endoscopy with Removal of nasal polyp based on CT Sinus results Epistaxis 06/01/2024 Assessment & Plan (06/01/2024 10:14 AM PAINT PREP TECHNICIAN): Ushaped pillow or Total pillow donut shape to take pressure off the Left ear Bactroban ointment to left ear twice daily If nose bleeds return, Nasal saline spray (Simply saline, [employer], [place], [place]) 2 second sprays or 2 squeezes into each nostril while looking down over the sink, do not need to sniff in daily Call if no improvement in next few weeks CT sinus, consider Nasal Endoscopy with Removal of nasal polyp based on CT Sinus results Cellulitis of left external ear 06/01/2024 Assessment & Plan (06/01/2024 10:14 AM PAINT PREP TECHNICIAN): Ushaped pillow or Total pillow donut shape to take pressure off the Left ear Bactroban ointment to left ear twice daily If nose bleeds return, Nasal saline spray (Simply saline, [employer], [place], [place]) 2 second sprays or 2 squeezes into each nostril while looking down over the sink, do not need to sniff in daily Call if no improvement in next few weeks CT sinus, consider Nasal Endoscopy with Removal of nasal polyp based on CT Sinus results Screening for malignant neoplasm of colon 2019 Overview (04/25/2020): Added automatically from request for surgery [id number] History of colon cancer 05/31/2019 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 Past Plans No past plan information found. Radiation Treatments * No radiation treatments are documented for this patient in [facility]. Treatments may have been administered in another system. Lifetime Dose Tracking * Chemical Lifetime Dose Automatic Entry Manual Entr y DLP 7,252 mGycm 7,252 mGycm 0 mGycm Treatment Summaries Malignant neoplasm of ascending colon (CMS/HCC) (HCC)* Images from the original note were not included. [address] [address] This Survivorship Care Plan is a cancer treatment summary and follow-up plan and is provided to youto keep with your health care records and to share with your primary care provider or any of your doctors and nurses. This summary is a brief record of major aspects of your cancer treatment not a detailed or comprehensive record of your care. You should review this with your cancer provider. Treatment Summary and Survivorship Care Plan for Colorectal Cancer General Information Patient name Trish Monique (home) [phone] (work) Date of 1950 Health Care Providers (Including Names, Institutions) Provider Name: Contact Information: Primary Care Physician Oh Erwin MD [phone] Surgeon Radu Alvarado MD [phone] Radiation Oncologist Medical Oncologist Residential Builder Kunal Rodríguez MD [phone] Other Providers Treatment Summary Cancer Diagnosis Information Diagnosis Malignant neoplasm of ascending colon (CMS/HCC) Diagnosis date 04/03/2019 Staging information Cancer Staging Stage II Predisposing Conditions None Family History of Colon, Rectal or Anal Cancer Colon, Rectal, or Anal Cancer- related family historyincludes Colon cancer in her daughter. Received Genetic counseling No Genetic Testing No Pre-op Colonoscopy Yes Completion to cecum Yes Treatment Completed Surgery Surgery date 04/25/2019 Surgical procedure / location / findings Laparoscopic Right Colon Resection Radiation No radiation to date Permanent [place] No Research Studies THE COLOCARE STUDY Status On study Start Date 04/03/19 EPHARMIX OPIOID STUDY Status On study Persistent symptoms or side effects that have continued after finishing treatment: Other: No surgical side effects to date. Treatment Ongoing: No Follow-up Care Plan Your follow-up care plan is design to inform you and primary care providers regarding the recommended and required follow-up, cancer screening and routine health maintenance that is needed to maintain optimal health. Schedule of Clinical Visits Coordinating Provider When/How often Colon Surgeon: Radu Alvarado MD (Patients may alternate with Medical oncology and Surgeon if both are [facility] Physicians) History and Physical every 3 months for 2 years then, every 6 months for following 3 years Oh Erwin After 5 years of treatment completion - yearly exam Cancer Surveillance or other Recommended Tests Coordinating Provider Test How Often Colon Surgeon: Radu Alvarado MD Colonoscopy 1 year after surgery Colon Surgeon: Radu Alvarado MD CEA blood test Every 3 months for 2 years then every 6 months for following 3 years. Colon Surgeon: Radu Alvarado MD Chest/Abdominal/pelvic CT (high risk patients) Yearly up to 5 years Possible late- and long-term effects that someone with this type of cancer and treatment may experience: Bowel problems (urgency, incontinence, change in consistency) Numbness/tingling Fatigue Memory/concentration difficulty Patients receiving radiation therapy for rectal cancer may also experience: Pelvic insufficiency fractures Urinary problems - urinary incontinence Sexual dysfunction - erectile dysfunction, ejaculatory problems, menopause, vaginal dryness, painful intercourse Please continue to see your primary care provider for all general health care recommended for a patient your age, including cancer screening tests, except for colon cancer. Any symptoms should be brought to the attention of your provider: Anything that represents a brand new symptom; Anything that represents a persistent symptom; Anything you are worried about that might be related to the cancer coming back. Cancer survivors may experience issues with the areas listed below. If you have any concerns in these or other areas, please speak with your doctors or nurses to find out how you can get help with them. Anxiety and depression Emotional and mental health Fatigue Fertility Financial advice or assistance Insurance Memory or concentration loss Parenting Physical functioning School/work Sexual functioning Stopping smoking Weight changes Other A number of lifestyle/behaviors can affect your ongoing health, including the risk for the cancer coming back or developing another cancer. Discuss these recommendations with your doctor or nurse: Colon and Rectal cancer require lifelong surveillance. It is essential that you follow your doctors??? recommendations for follow up appointments and tests. Eat a healthy diet: focus on lean meats and proteins, more fruits, vegetables and whole grains and low in sugars and fats. Limit red meat and avoid processed meat. Maintain a healthy weight; avoid being overweight. Aim for a normal body mass index (BMI) of 18.5-24.9. Help learning to eat healthier, call the x ray electronics wiring technician at: [facility] [facility] . Have an active lifestyle, strive for 30 minutes of moderate exercise 5 times a week and strength orresistance training at least twice a week. Use broad-spectrum (UVA+UVB) sunscreen with SPF 30 or greater, is water resistant, limit time spentin the sun (10 am-4pm), wear hat, wear UV protective clothing, wear sunglasses. Never use a tanningbed. Skin that was irradiated may be more sensitive over your lifetime. Do not smoke or chew tobacco; participate in a smoking cessation program. Limit alcohol intake, 1 drink per day for a woman and 2 drinks per day for a man. Family members may be at risk for colorectal cancer, please advise your family members to discuss with their primary care physician their risk and screening needs. Family members may be at risk for colorectal cancer, please advise your family members to discuss with their primary care physician their risk and screening needs. Discuss your need for daily aspirin and other healthy life style measures with your primary care physician. Resources you may be interested in: [facility] [place] [facility] Cancer [facility] [email or web address]/ [facility] 1st floor of [facility] [phone]. Computer access, educational material, counseling services (FREE) [employer]: the place for ostomy resources, advocacy, and support. www.ostomy.org Ostomy nurse at [facility] can be reached at [phone] Online Resources: www.cancer.net; http://www.cdc.gov/cancer/survivorship; http://www.cancercare.org/tagged/post-treatment_survivorship; http://www.cancer.gov/about-cancer/coping/survivorship [employer]: https://survivorship.cancer.gov/ an online tool for cancer survivors andcaregivers created by the [employer] and the National Cancer [place]. It provides: Information on dealing with side effects from cancer and treatment Caregivers with support and resources Practical advice about talking to friends and family about cancer Questions to ask their health care team Help understanding their rights in the workplace
--- OUTSIDE RECORDS SUMMARY | 2024-08-24 07:59 | XMS_ITS | Referral Summary ---
Author Organization [facility] Address [address] [place] [address] Care Team Providers Care Clinical Product Manager Name Role Phone Oh Erwin MD Primary Care Provider [phone] Kunal Fritz MD Unavailable + Radu Alvarado MD Unavailable [phone] Encounters Date Type Department Care Team Description 08/21/[address] [facility] - [address] [place] [phone] Theresa Wei MA Test Results 08/20/[address] [facility] - [address] [place] [phone] Theresa Wei MA Test Results 08/16/2024 10:00 AM SFDC DEVELOPER - 08/16/2024 11:00 AM SFDC DEVELOPER Surgery [facility] Operating Room [address] [place] [address] Tabitha Giles, Endoscopic Right Nasal cavity mass excision ([id number]) 08/16/2024 11:57 AM SFDC DEVELOPER Anesthesia Event [facility] Operating Room [address] [place] [address] Hung Mitchell MD 08/16/2024 8:04 AM SFDC DEVELOPER - 08/16/2024 2:50 PM SFDC DEVELOPER Hospital Encounter [facility] Operating Room [address] [place] [address] Tabitha Giles DO Polyp of nasal cavity (Primary Dx) Discharge Disposition: Discharge to home or self care 07/11/[address] [facility] - [address] [place] [address] Tiffany Campbell MA 07/10/[address] [facility] - [address] [place] [address] Tabitha Giles DO 07/06/2024 8:08 AM SFDC DEVELOPER - 07/06/2024 11:59 PM SFDC DEVELOPER Hospital Encounter [address] [address] Polyp of nasal cavity Discharge Disposition: Discharge to home or self care 07/05/[address] [address] [place]. 06/01/2024 9:45 AM SFDC DEVELOPER Office Visit [facility] - [address] [place] [address] Tabitha Giles, Epistaxis (Primary Dx); Cellulitis of left external ear; Polyp of nasal cavity; Impacted cerumen of left ear from Last 3 Months Allergies Active Allergy Reactions Criticality Noted Date Comments Penicillins Rash Medium 04/03/2019 Sulfa (Sulfonamide Antibiotics) Hives,Rash Medium 03/25 Medications atenolol (TENORMIN) 25 mg tablet TAKE 1 TABLET BY MOUTH EVERYDAY AT BEDTIME FOR BLOOD PRESSURE 9 Active atorvastatin (LIPITOR) 20 mg tablet Take 1 tablet (20 mg total) by mouth nightly 9 Active metFORMIN XR (GLUCOPHAGE XR) 500 mg 24 hr tablet Take 2 tablets (1,000 mg total) by mouth nightly 9 Active spironolactone (ALDACTONE) 25 mg tablet Take 1 tablet (25 mg total) by mouth every morning Active cholecalciferol 25 mcg (1,000 unit) tablet Take 1,000 Units by mouth daily 1 08/08/19 25 Discontinu ed(Therapy completed) magnesium oxide (MAG-OX) 500 mg (301.6 mg elemental) tablet TAKE 1 TABLET BY MOUTH EVERYDAY AT BEDTIME 08/08/19 25 Discontinu ed(Therapy completed) cephalexin (KEFLEX) 500 mg capsule 3 08/08/19 25 Discontinu ed(Therapy completed) Active Problems Problem Noted Date Diagnosed Date Polyp of nasal cavity 06/01/2024 Assessment & Plan (06/01/2024 10:14 AM SFDC DEVELOPER): Ushaped pillow or Total pillow donut shape to take pressure off the Left ear Bactroban ointment to left ear twice daily If nose bleeds return, Nasal saline spray (Simply saline, [employer] Remedies, [place], [place]) 2 second sprays or 2 squeezes into each nostril while looking down over the sink, do not need to sniff in daily Call if no improvement in next few weeks CT sinus, consider Nasal Endoscopy with Removal of nasal polyp based on CT Sinus results Epistaxis 06/01/2024 Assessment & Plan (06/01/2024 10:14 AM SFDC DEVELOPER): Ushaped pillow or Total pillow donut shape to take pressure off the Left ear Bactroban ointment to left ear twice daily If nose bleeds return, Nasal saline spray (Simply saline, [employer] Remedies, [place], [place]) 2 second sprays or 2 squeezes into each nostril while looking down over the sink, do not need to sniff in daily Call if no improvement in next few weeks CT sinus, consider Nasal Endoscopy with Removal of nasal polyp based on CT Sinus results Cellulitis of left external ear 06/01/2024 Assessment & Plan (06/01/2024 10:14 AM SFDC DEVELOPER): Ushaped pillow or Total pillow donut shape to take pressure off the Left ear Bactroban ointment to left ear twice daily If nose bleeds return, Nasal saline spray (Simply saline, [employer] Remedies, [place], [place]) 2 second sprays or 2 squeezes into each nostril while looking down over the sink, do not need to sniff in daily Call if no improvement in next few weeks CT sinus, consider Nasal Endoscopy with Removal of nasal polyp based on CT Sinus results Screening for malignant neoplasm of colon 2019 Overview (04/25/2020): Added automatically from request for surgery [id number] History of colon cancer 05/31/2019 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 Overview (04/04/2019): Added automatically from request for surgery [id number] Malignant neoplasm of ascending colon (CMS/HCC) 04/03/2019 Immunizations Name Administration Dates Next Due Influenza, Trivalent, High D ose, Split, Preservative Free, Intramuscular 04/26/2019 Social History Tobacco Use Types Packs/Day Years Used Date Smoking Tobacco: Never Passive Smoke Exposure: Never Smokeless Tobacco: Never Tobacco Cessation:Counseling Given: Not Answered Alcohol Use Standard Drinks/Week Comments Not Currently 0 (1 standard drink = 0.6 oz pur e alcohol) AUDIT-C Answer Date Recorded Frequency of Alcohol Consumption Not on file 08/08/2024 Q2: How many drinks containi ng alcohol do you have on a typical day when you are drinking? Patient does not drink Frequency of Binge Drinking Not on file 07/25 Personal Safety Answer Date Recorded Have you ever been in or are you currently in a harmful physical or emotional relationship or is someone making you feel afraid or unsafe? Denies 08/16/2024 Comments No Sex and Gender Information Value Date Recorded Sex Assigned at Not on file Legal Sex Female 6:36 PM SFDC DEVELOPER Gender Identity Not on file Sexual Orientation Not on file Last Filed Vital Signs Vital Sign Reading Time Taken Comments Blood Pressure 127/56 08/16/2024 2:30 PM SFDC DEVELOPER Pulse 68 08/16/2024 2:30 PM SFDC DEVELOPER Temperature 36.3 ??C (97.4 ??F) 08/16/2024 1:58 PM CS T Respiratory Rate 20 08/16/2024 2:30 PM SFDC DEVELOPER Oxygen Saturation 94% 08/16/2024 2:30 PM SFDC DEVELOPER Inhaled Oxygen Concentration - - Weight 81.4 kg (179 lb 7.3 oz) 08/16/2024 8:29 A M SFDC DEVELOPER Height 165.1 cm (5' 5 ) 08/16/2024 8:29 AM SFDC DEVELOPER Body Mass Index 29.86 08/16/2024 8:29 AM SFDC DEVELOPER Plan of Treatment Not on file Medical Devices Implanted Type Area Powder Press Operator Device Identifier Shelf Expiration Date Model / Serial / Lot Breast Breast Bilateral: Breast Procedures Procedure Name Priority Date/Time Associated Diagnosis Comments SURGICAL PATHOLOGY Routine 08/16/2024 2: 22 PM SFDC DEVELOPER Polyp of nasal cavity WY AN ELECTIVE ENDOTRACHEAL AIRWAY Routine 08/16/2024 12:19 PM SFDC DEVELOPER POLYPECTOMY 08/16/2024 11:42 AM SFDC DEVELOPER Polyp of nasal cavity ECG 12-LEAD STAT 08/16/2024 8:51 AM SFDC DEVELOPER POTASSIUM, WHOLE BLOOD STAT 8:44 AM SFDC DEVELOPER POCT GLUCOSE DEVICE Routine 08/16/2024 8 :[address] SINUS STEALTH WO CONTRAST Schedule Routine, Read Routine (OP Routine) 07/06/2024 8:44 AM SFDC DEVELOPER Polyp of nasal cavity WY REMOVAL IMPACTED CERUMEN INSTRUMENTATION UNILAT Routine 06/01/2024 9:45 AM SFDC DEVELOPER Impacted cerumen of left ear COLONOSCOPY 05/19/2023 11:10 AM CDT from Last 3 Months or Most Recently Relevant to Health Maintenance Results * Surgical pathology (08/16/2024 2:22 PM SFDC DEVELOPER) Tissue (Mass/Tumor/Lesio n) 08/16/2024 12:22 PM SFDC DEVELOPER Narrative PATHOLOGY [facility] - 08/17/2024 12:58 PM SFDC DEVELOPER [facility] results best viewed via link to PDF [facility] Department of Pathology [address] [place] [id number] Note to Patients: This report may contain a detailed description of human tissue sent by a health care provider to the laboratory for pathologic evaluation. The content of this report is essential for diagnosis and may provide important critical findings. This information may be unfamiliar to patients to review without a medical professional present. It is advised that the patient review this report in the presence of a health care provider who can answer questions and explain the details. Final Report Patient Name: ??TRISH VALENCIA. Address: ??[address], ??[place], [place] ??[address]- Gender: ??F : ??1950 (Age: 74) Service: ??Surgery Location: ??[facility] Hospital #: ??[id number] Patient Type: ??[facility] Accession # ?[id number] Taken: ??08/16/2024 Received: ??08/16/2024 Accessioned: ??08/16/2024 Reported: ??08/17/2024 Physician(s):TABITHA GILES D.O. Diagnosis: Right nasal cavity mass, excision: ? - Consistent with cavernous hemangioma. Sal Flores M.D. Report Electronically Reviewed and Signed Out By ??Sal Flores M.D. ??08/17/2024 12:58:52 Specimen(s) Received: A: Right nasal cavity mass Microscopic Description: Sections show a polypoid mass composed of medium to large sized vessels consistent with a cavernous hemangioma. ??There is no significant cytologic atypia or evidence of malignancy present. Clinical History: Polyp of nasal cavity. ??Endoscopic right nasal polypectomy. Gross Description: Received in a single formalin filled container labeled with TRISH ERNSTNUBIASerina and right nasal cavity mass . ??It is a red-pichardo polypoid tissue fragment measuring 2.5 cm and an approximate 0.5 cc aggregate of blood clot. ??Base of the polyp is inked, it is bisected. ??All in 1 cassette. Luis Duarte R.N., P.A./Jaymie Cooper M.D. REPORT IMAGES AND SCANNED DOCUMENTS, IF INCLUDED, ONLY VIEWABLE IN PDF VERSION OF REPORT The performance characteristics of some immunohistochemical stains, fluorescence in-situ hybridization tests and immunophenotyping by flow cytometry cited in this report (if any) were determined by the Surgical Pathology Department at [facility] as part of an ongoing quality assurance practice manager program and in compliance with federally mandated regulations drawn from the Clinical Laboratory Improvement Act of 1988 (CLIA '88). ??Some of these tests rely on the use of analyte specific reagents and are subject to specific labeling requirements by the US Food and Drug Administration. ??Such diagnostic tests may only be performed in a facility that is certified by the Department of Health and Human Services as a high complexity laboratory under CLIA '88. The FDA has determined that such clearance or approval is not necessary. ??This test is used for clinical purposes. ??It should not be regarded as investigational or for research. ??Nevertheless, federal rules concerning the medical use of analyte specific reagents require that the following disclaimer be attached to the report: This test was developed and its performance characteristics determined by the Surgical Pathology Department [facility]. ??It has not been cleared or approved by the U. S. Food and Drug Administration. Note for decalcified specimens: This assay has not been validated on decalcified tissues. Results should be interpreted with caution given the possibility of false negativity on decalcified specimens Tabitha Giles DO LAB PATHOLOGY ORDERABLES Fin al Result Performing Organization Address City/State/[facility] Co de Phone Number PATHOLOGY [address] [address] * [place] AN ELECTIVE ENDOTRACHEAL AIRWAY (08/16/2024 12:19 PM SFDC DEVELOPER) Narrative Clementine Xavier CRNA - 08/16/2024 12:19 PM SFDC DEVELOPER Clemenitne Xavier CRNA ? 08/16/2024 12:20 PM Airway Patient location: OR Urgency: elective Indications for airway management: anesthesia and airway protection Difficult airway: no Staff: Supervising provider: Hung Mitchell MD Placed by: TRUCK REPAIR SUPERVISOR: Clementine Xavier CRNA Emergent airway documentation: Risks and benefits discussed: yes Consent obtained: yes Consent given by: patient Airway prep: Preoxygenated: yes Patient position: sniffing Mask difficulty assessment: 1 - vent by mask Spontaneous ventilation during airway: absent Sedation level during airway: GA Final airway details: Final airway type: endotracheal airway Tube type: ETT ETT size: 7.0 mm Cuffed: yes Technique used for successful ETT placement: video laryngoscopy Devices/Methods used in placement: intubating stylet Insertion site: oral Blade type: Aileen Video blade type: Carson Blade size: 3 Cormack-Lehane (video): grade I - full view of glottis Cuff inflated with: air ETT to lips: 20 cm Placement verified by: auscultation and CO2 detection Airway secured with: silk tape Number of attempts: 1 Additional comments: Capped tooth #10 loose prior to intubation. No change post-intubation. Hung Mitchell MD ANESTHESIA ORDERABLES Sarah l Result * ECG 12 lead (08/16/2024 8:51 AM SFDC DEVELOPER) 08/16/2024 8:51 AM SFDC DEVELOPER Narrative [facility] - 08/16/2024 12:25 PM SFDC DEVELOPER Vent Rate: 59 bpm RR Interval: 1014 msec WY Interval: 163 msec QRS Duration: 137 msec QT Interval: 438 msec QTC Interval: 436 msec P-R-T [place]: 79 - 47 - -3 degrees IMPRESSION: SINUS BRADYCARDIA Right bundle branch block ABNORMAL ECG Electronically Signed By: Walt Perales MD Tabitha Giles DO ECG ORDERABLES Final Result Performing Organization Address City/[facility] de Phone Number [facility] * Potassium, whole blood (08/16/2024 8:44 AM SFDC DEVELOPER) Potassium, bld 3.8 3.3 - 4.9 mmol/L Comment: Interpretive Data This method is not able to assess for hemolysis, which may falsely increase potassium concentrations. If further testing is needed to evaluate this result, consider in-laboratory plasma potassium. Current Interpretive Data was last revised on 2022. Blood 08/16/2024 8:44 AM SFDC DEVELOPER 08/16/2024 8:47 AM SFDC DEVELOPER Tabitha Giles DO LAB BLOOD ORDERABLES Final R esult Performing Organization Address City/[facility]/ZIP Co de Phone Number [facility] ([place] [address] [facility] Department [place] [address] * POCT glucose (08/16/2024 8:43 AM SFDC DEVELOPER) Glucose, POC 186 70 - 199 mg/dL Blood 08/16/2024 8:43 AM SFDC DEVELOPER 08/16/2024 8:43 AM SFDC DEVELOPER us Tabitha HerbertLizzie Ludaeliseovernon DO LAB POCT ORDERABLES - DEVICE Final Result [facility] Department [place] [address] * CT Sinus Stealth WO Contrast (07/06/2024 8:44 AM SFDC DEVELOPER) Anatomical Region Laterality Modality Head N/A Computed Tomogra phy 07/06/2024 12:3 6 PM SFDC DEVELOPER Narrative 07/06/2024 12:44 PM SFDC DEVELOPER EXAM DESCRIPTION: ?? CT SINUS STEALTH WO CONTRAST REASON FOR STUDY: ?? Sinonasal polyposis ?? Chronic nose bleeds for over 1 year. ? TECHNIQUE: Noncontrast scanning through the paranasal sinuses using bone algorithm. ??Reconstructed MPR images reviewed. ??All images stored on PACS. ?? Automated exposure control was used as a dose optimization technique for this examination. COMPARISON: ??No prior studies are available for comparison at time of this dictation. FINDINGS: SINUSES: ?? Frontal sinus: ??Normally aerated. ?? The frontal outflow tract including infundibulum, ostium and recess is patent. ?? Ethmoid sinus: ??Right anterior and posterior ethmoid air cells are clear. ?? Left anterior and posterior ethmoid air cells are clear. ?? Maxillary sinus: ??The right maxillary sinus is clear. ?? The right maxillary sinus ostiomeatal complex is patent including the maxillary ostium, infundibulum, and hiatus semilunaris is clear. Ethmoid bulla and uncinate process are unremarkable. ?The left maxillary sinus is clear. ?The left maxillary sinus ostiomeatal complex is patent including the maxillary ostium, infundibulum, and hiatus semilunaris is clear. Ethmoid bulla and uncinate process are unremarkable. Sphenoid sinus: ??Normally aerated. ?? The bilateral sphenoethmoidal recess is patent. ?? Righ type 1 and left 3 ??Keros. There ??are not ??pneumatized supraorbital anterior ethmoid air cells superior to the anterior ethmoidal notch. No evidence of significant lamina papyracea dehiscence. No evidence of a radha bullosa. There is a [place] air cell. No evidence of a significant Bert cell. NASAL CAVITY: ?? A soft tissue attenuation polypoid opacity is seen within the right nasal passage abutting the right middle and inferior turbinates and the nasal septum. ??The middle meatus is partially obstructed due to the finding . ?? This nearly projects into the nasopharynx. ??Slight leftward deviation of the nasal septum. BONES: ?? No fracture or bone lesion. ORBITS: ?? Unremarkable with no mass or inflammatory changes. TMJS: ?? Normal. MASTOIDS: ?? Well-aerated. ??IACs symmetric, grossly normal. BRAIN: ?? Limited view. No acute findings. OTHER: ?? Hyperostosis of the frontal calvarium is noted. IMPRESSION: A soft tissue attenuation polypoid opacity within the right nasal passage abuts the right middle and inferior turbinates and the nasal septum. The middle meatus is partially obstructed due to the finding. ??This most likely represents a large polyp but is a nonspecific finding. ??No other nasal polyps are identified. No significant opacification of the paranasal sinuses. THIS IS AN ELECTRONICALLY VERIFIED FINAL REPORT 07/06/2024 12:44 PM - Electronically signed by ??Yaakov Ring M.D. MM: MM D: ??07/06/2024 12:44 PM T: ??07/06/2024 12:44 PM Report ID: [id number] Reading Location: ??[id number] Procedure Note Yaakov Ring MD - 07/06/2024 EXAM DESCRIPTION: CT SINUS STEALTH WO CONTRAST REASON FOR STUDY: Sinonasal polyposis Chronic nose bleeds for over 1 year. TECHNIQUE: Noncontrast scanning through the paranasal sinuses using bone algorithm. Reconstructed MPR images reviewed. All images stored on PACS. Automated exposure control was used as a dose optimization technique forthis examination. COMPARISON: No prior studies are available for comparison at time of this dictation. FINDINGS: SINUSES: Frontal sinus: Normally aerated. The frontal outflow tract including infundibulum, ostium and recess is patent. Ethmoid sinus: Right anterior and posterior ethmoid air cells are clear. Left anterior and posterior ethmoid air cells are clear. Maxillary sinus: The right maxillary sinus is clear. The rightmaxillary sinus ostiomeatal complex is patent including the maxillary ostium, infundibulum, and hiatus semilunaris is clear. Ethmoid bulla and uncinate process are unremarkable. The left maxillary sinus is clear. Theleft maxillary sinus ostiomeatal complex is patent including the maxillaryostium, infundibulum, and hiatus semilunaris is clear. Ethmoid bulla and uncinate process are unremarkable. Sphenoid sinus: Normally aerated. The bilateral sphenoethmoidal recessis patent. Righ type 1 and left 3 Keros. There are not pneumatized supraorbital anterior ethmoid air cells superior to the anterior ethmoidal notch. No evidence of significant lamina papyracea dehiscence. No evidence of a radha bullosa. There is a Onodi air cell. No evidence of a significant Bert cell. NASAL CAVITY: A soft tissue attenuation polypoid opacity is seen withinthe right nasal passage abutting the right middle and inferior turbinates andthe nasal septum. The middle meatus is partially obstructed due to thefinding . This nearly projects into the nasopharynx. Slight leftward deviation ofthe nasal septum. BONES: No fracture or bone lesion. ORBITS: Unremarkable with no mass or inflammatory changes. TMJS: Normal. MASTOIDS: Well-aerated. IACs symmetric, grossly normal. BRAIN: Limited view. No acute findings. OTHER: Hyperostosis of the frontal calvarium is noted. IMPRESSION: A soft tissue attenuation polypoid opacity within the right nasal passage abuts the right middle and inferior turbinates and the nasal septum. The middle meatus is partially obstructed due to the finding. This mostlikely represents a large polyp but is a nonspecific finding. No other nasalpolyps are identified. No significant opacification of the paranasal sinuses. THIS IS AN ELECTRONICALLY VERIFIED FINAL REPORT 07/06/2024 12:44 PM - Electronically signed by Yaakov Ring M.D. MM: MM Report ID: [id number] Reading Location: [id number] us Tabitha Giles DO IMG CT PROCEDURES Final Resu lt * [place] REMOVAL IMPACTED CERUMEN INSTRUMENTATION UNILAT (06/01/2024 9:45 AM SFDC DEVELOPER) Narrative Tabitha Giles, DO - 06/01/2024 9:45 AM SFDC DEVELOPER Tabitha Giles, DO ? 06/01/2024 12:13 PM Ear Cerumen Removal Performed by: Tabitha Giles DO Authorized by: Tabitha Giles, ?? Consent Given by: ??Patient Timeout: prior to procedure the correct patient, procedure, and site was verified ?? Verbal consent obtained: Yes ?? Written consent obtained: No ?? Risks, alternatives, and patient questions discussed: Yes ?? Preparation: Patient was prepped using a clean technique ?? Location: ??L ear L ear cerumen impacted?: Yes ?? L ear method of removal: ??Instrumentation and magnification L ear instrumentation: ??Curette L ear magnification: ??Operating microscope Inspection: ??TM intact Hearing quality: ??Improved Patient tolerance: ??Patient tolerated the procedure well with no immediate complications Tabitha Giles DO IN CLINIC/BEDSIDE ORDERABLES Final Result * COLONOSCOPY (05/19/2023 11:10 AM CDT) Anatomical Region Laterality Modality Other Narrative Procedure Note Radu Alvarado MD - 05/19/2023 11:10 AM CDT [facility] Patient Name: Trish Valencia Procedure Date: 05/19/2023 11:10AM Date of : 1950 Admit Type: Outpatient Age: 72 Gender: Female Attending MD: Radu Alvarado M.D. Room: [facility] ENDOSCOPY ROOM 02 Note Status: Finalized Procedure: Colonoscopy Indications: High risk colon cancer surveillance: Personalhistory of colon cancer, Last colonoscopy: 2019 Referring MD: Providers: Radu Alvarado M.D. Medicines: Propofol per Anesthesia Complications: No immediate complications. Estimated blood loss: Minimal. Estimated Blood Loss: Estimated blood loss was minimal. Procedure: Pre-Anesthesia Assessment: - Immediately prior to administration ofmedications, the patient was re-assessed for adequacy to receive sedatives. - Sedation was administered by an anesthesia professional. General anesthesia was attained. - The heart rate, respiratory rate, oxygen saturations, blood pressure, adequacy of pulmonary ventilation, and response to care were monitored throughout the procedure. - The physical status of the patient wasre-assessed after the procedure. The benefits, risks and alternatives of theprocedure and sedation were discussed and informed consentwas obtained. All questions were answered. Please referto the signed informed consent document in the medical record. The scope was passed under direct vision.The [id number] was introduced through the anusand advanced to the the ileocolonic anastomosis. The quality of the bowel preparation was excellent. The quality of the bowel preparation was evaluatedusing the BBPS (Weinert Bowel Preparation Scale) withscores of: Right Colon = NA, Transverse Colon = 3 and Left Colon = 3. The total BBPS score equals 6* (*thisscore is the summation of 2 or fewer segments). The bowel preparation used was SUPREP via split doseinstruction. Findings: An 8 mm polyp was found in the transverse colon. The polyp wasremoved with a cold snare. Resection and retrieval were complete. Estimated blood loss was minimal. Impression: - One 8 mm polyp in the transverse colon, removedwith a cold snare. Resected and retrieved. Recommendation: - Await pathology results. - Repeat colonoscopy in 3 years for surveillance. Electronically signed by Dr.Matthew Christiano M.D. Radu Alvarado M.D. 05/19/2023 12:02:29 PM . Number of Addenda: 0 Note Initiated On: 05/19/2023 11:10 AM Recognized by the [place] [employer] for promoting quality in endoscopy Radu Alvarado MD ENDOSCOPY PROCEDURES Final R esult from Last 3 Months or Most Recently Relevant to Health Maintenance Insurance COMMERCIAL GENERIC MEDICARE [facility] MEDICARE [facility] MEDICARE Address: [address] [address] [place] [address] MEDICARE COMMERCIAL GENERIC Advance Directives For more information, please contact: [phone] * Full Code (Latest Code Status on File) Date Activated Date Inactivated Comments 05/19/2023 10:55 AM 05/19/2023 4:24 PM * Full Code Date Activated Date Inactivated Comments 05/29/2020 9:26 AM 05/29/2020 3:37 PM * Full Code Date Activated Date Inactivated Comments 04/25/2019 6:38 PM 04/29/2019 4:23 PM Care Teams Clinical Product Manager Relationship Specialty Start Date End Date Oh Erwin MD PCP - General Internal Medicine 03/09/19 Kunal Fritz MD Sales Recruitment Specialist Gastroenterology 04/03/19 Radu Alvarado MD Surgeon Colon and Rectal Surgery 05/30/19
--- OUTSIDE RECORDS SUMMARY | 2024-08-24 07:59 | XMS_ITS | Continuity of Care Document ---
Author Organization [facility] Address [address] [place] [address] Phone Care Team Providers Care Car Hiker Name Role Phone Unavailable Unavailable Unavailable Procedures Procedure Date Postop followup visit Postop followup visit Knee arthscpy mnsctmy medial or lat Arthro, loose body + chondro Office/outpatient visit,est, mod 2008 Office/outpatient visit,new, mod 2008 X-ray exam of knee, 1 or2 views 009 X-ray exam of both knees, standing Advance Directives Directive Yes / No Effective Date File Name No Information Encounters Encounter Description Practice Location Reason(s) For Visit Diagnoses Date Provider Providers Copied on Encounter [facility], [address] [facility] [address], [place], [place], [id number], [place] tel:[phone] [facility] No Information 9 No Information [facility], [address] [place], [place], [id number], [place] tel:[phone] [facility] No Information 9 No Information [facility], [address], [place], [place], [id number], [place] tel:[phone] [facility] No Information 9 No Information Office/outpat ient visit,est, mod [facility], [address] [facility] [address], [place], [place], [id number], [place] tel:[phone] [facility] No Information No Information Office/outpat ient visit,new, LISNR [facility], [address] [facility] [address], [place], [place], [id number], [place] tel:[phone] [facility] [employer] No Information 9 No Information Family History Family Member Type Diagnosis Age At Onset No Information Payers Payer name Insurance type Covered republican ID Authoriza tisiva(s) Sepideh Blue Cross Blue Shiel d [facility] [id number] Social History Type Description Quantity Date Captured Comments Sex Female Smoking Status No Information Chief Complaint And Reason For Visit No Information Reason For Referral Reason For Referral No Information History Of Present Illness Encounter Date Complaint History Of Prese nt Illness No Information Functional Status Date Functional Assessmen t No Information Instructions Date Instruction Additional Infor mation No Information Assessments Type Assessment Date No Information Patient Care Teams Name Effective Dates (start - stop) Status Members No Information
--- OUTSIDE RECORDS SUMMARY | 2024-08-24 07:59 | XMS_ITS | Clinical Summary ---
Author Organization [facility] Address [address] [place] [address] Care Team Providers Care Supervisor Travel Information Center Name Role Phone Oh Erwin MD Primary Care Provider [phone] Kunal Fritz MD Unavailable + Radu Alvarado MD Unavailable [phone] Allergies Active Allergy Reactions Criticality Noted Date Comments Penicillins Rash Medium 04/03/2019 Sulfa (Sulfonamide Antibiotics) Hives,Rash Medium 03/25 Medications atenolol (TENORMIN) 25 mg tablet TAKE 1 TABLET BY MOUTH EVERYDAY AT BEDTIME FOR BLOOD PRESSURE 1 9 Active atorvastatin (LIPITOR) 20 mg tablet [...] tablet Take 1,000 Units by mouth daily 08/08/19 25 Discontinu ed(Therapy completed) magnesium oxide (MAG-OX) 500 mg (301.6 mg elemental) tablet TAKE 1 TABLET BY MOUTH EVERYDAY AT BEDTIME 08/08/19 25 Discontinu ed(Therapy completed) cephalexin (KEFLEX) 500 mg capsule 3 08/08/19 25 Discontinu ed(Therapy completed) Active Problems Problem Noted Date Diagnosed Date Polyp of nasal cavity 06/01/2024 Assessment & Plan (06/01/2024 10:14 AM NETWORKER): Ushaped pillow or Total pillow donut shape to take pressure off the Left ear Bactroban ointment to left ear twice daily If nose bleeds return, Nasal saline spray (Simply saline, Little Remedies, [place], [place]) 2 second sprays or 2 squeezes into each nostril while looking down over the sink, do not need to sniff in daily Call if no improvement in next few weeks CT sinus, consider Nasal Endoscopy with Removal of nasal polyp based on CT Sinus results Epistaxis 06/01/2024 Assessment & Plan (06/01/2024 10:14 AM NETWORKER): Ushaped pillow or Total pillow donut shape to take pressure off the Left ear Bactroban ointment to left ear twice daily If nose bleeds return, Nasal saline spray (Simply saline, Little Remedies, [place], [place]) 2 second sprays or 2 squeezes into each nostril while looking down over the sink, do not need to sniff in daily Call if no improvement in next few weeks CT sinus, consider Nasal Endoscopy with Removal of nasal polyp based on CT Sinus results Cellulitis of left external ear 06/01/2024 Assessment & Plan (06/01/2024 10:14 AM NETWORKER): Ushaped pillow or Total pillow donut shape to take pressure off the Left ear Bactroban ointment to left ear twice daily If nose bleeds return, Nasal saline spray (Simply saline, Little Remedies, [place], [place]) 2 second sprays or 2 squeezes into each nostril while looking down over the sink, do not need to sniff in daily Call if no improvement in next few weeks CT sinus, consider Nasal Endoscopy with Removal of nasal polyp based on CT Sinus results Screening for malignant neoplasm of colon 2019 Overview (04/25/2020): Added automatically from request for surgery [id number] History of colon cancer 05/31/2019 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 Overview (04/04/2019): Added automatically from request for surgery [id number] Malignant neoplasm of ascending colon (CMS/HCC) 04/03/2019 Encounters Date Type Department Care Team Description 08/21/2024 Telephone [facility] [address] [place] [address] Theresa Wei MA Test Results 08/20/2024 Telephone [facility] [address] [place] [address] Theresa Wei MA Test Results 08/16/2024 11:57 AM NETWORKER Anesthesia Event [facility] [address] [place] [address] Hung Mitchell MD 08/16/2024 10:00 AM NETWORKER - 08/16/2024 11:00 AM NETWORKER Surgery [facility] [address] [place] [address] Tabitha Giles DO Endoscopic Right Nasal cavity mass excision (19727) 08/16/2024 8:04 AM NETWORKER - 08/16/2024 2:50 PM NETWORKER Hospital Encounter [facility] [address] [place] [address] Tabitha Giles DO Polyp of nasal cavity (Primary Dx) Discharge Disposition: Discharge to home or self care 07/11/2024 Telephone [facility] [address] [place] [address] Tiffany Campbell MA 07/10/2024 Telephone [facility] [address] [place] [address] Tabitha Giles DO 07/06/2024 8:08 AM NETWORKER - 07/06/2024 11:59 PM NETWORKER Hospital Encounter [facility] [address] [place] [address] Polyp of nasal cavity Discharge Disposition: Discharge to home or self care 07/05/2024 Telephone [facility] [address] [place] [address] Claudia Lou 06/01/2024 9:45 AM NETWORKER Office Visit [facility] - [address] [place] [address] Tabitha Giles, Epistaxis (Primary Dx); Cellulitis of left external ear; Polyp of nasal cavity; Impacted cerumen of left ear from Last 3 Months Immunizations Name Administration Dates Next Due Influenza, Trivalent, High D ose, Split, Preservative Free, Intramuscular 04/26/2019 Surgical History Surgery Date Site/Laterality Comments BREAST SURGERY 07/25/2006 - 07/24/2007 MELANOMA RESECTION 07/25/1991 - 07/24/1992 CERVICAL POLYPECTOMY COLON SURGERY 04/25/2019 Laparoscopic-assisted right colectomy COLONOSCOPY 05/29/2020 Medical History Medical History Date Comments Hypertension Diabetes mellitus (HCC) Breast cancer (HCC) Melanoma (HCC) right ankle Anemia Type 2 diabetes mellitus (HCC) Colon cancer (CMS/HCC) (HCC) Family History Medical History Relation Name Comments Colon cancer Daughter Colon polyps Daughter Leukemia Father Stroke Mother Stroke Sister Anesthesia problems Neg Hx Relation Name Status Comments Daughter Father Mother Sister Social History Tobacco Use Types Packs/Day Years [...] on file Legal Sex Female 6:36 PM NETWORKER Gender Identity Not on file Sexual Orientation Not on file Obstetrics History Last Filed Vital Signs Vital Sign Reading Time Taken Comments Blood Pressure 127/56 08/16/2024 2:30 PM NETWORKER Pulse 68 08/16/2024 2:30 PM NETWORKER Temperature 36.3 ??C (97.4 ??F) 08/16/2024 1:58 PM CS T Respiratory Rate 20 08/16/2024 2:30 PM NETWORKER Oxygen Saturation 94% 08/16/2024 2:30 PM NETWORKER Inhaled Oxygen Concentration - - Weight 81.4 kg (179 lb 7.3 oz) 08/16/2024 8:29 A M NETWORKER Height 165.1 cm (5' 5 ) 08/16/2024 8:29 AM NETWORKER Body Mass Index 29.86 08/16/2024 8:29 AM NETWORKER Plan of Treatment Health Maintenance Due Date Last Done Comments Depression Screening 1950 Hepatitis C Screening 1950 Osteoporosis Screening-Bone Density Scan 1950 DTaP/Tdap/Td Vaccine (1 - Tdap) 1959 Hepatitis B Screening 1966 Zoster Vaccine (1 of 2) 1998 Well Visit 65+ 2013 Pneumococcal vaccine 65+ (3 of 3 - PPSV23 or PCV20) 06/25/2020 06/25/2015, 07/25/2007 Influenza Vaccine (#1) 2024 9, 05/31/2016, 05/31/2015, Additional history exists Fall Risk Assessment 05/19/2024 05/19/2023 Colon Cancer Screening-CT Colonography Discontinued 05/19/2023, 05/29/2020 Colon Cancer Screening-Colonoscopy Discontinued 05/19/2023, 05/29/2020 Colon Cancer Screening-DNA Stool Discontinued 05/19/20 23, 05/29/2020 Colon Cancer Screening-FIT Discontinued 05/19/2023, Colon Cancer Screening-FOBT Discontinued 05/19/2023, 1 07/29/2019 Colon Cancer Screening-Sigmoidoscopy Discontinued 05/19/2023, 05/29/2020 Colorectal Cancer Screening Discontinued Medical Devices Implanted Type Area Ice Seller Device Identifier Shelf Expiration Date Model / Serial / Lot Breast Breast Bilateral: Breast Procedures Procedure Name Priority Date/Time Associated Diagnosis Comments SURGICAL PATHOLOGY Routine 08/16/2024 2: 22 PM NETWORKER Polyp of nasal cavity MO AN ELECTIVE ENDOTRACHEAL AIRWAY Routine 08/16/2024 12:19 PM NETWORKER POLYPECTOMY 08/16/2024 11:42 AM NETWORKER Polyp of nasal cavity ECG 12-LEAD STAT 08/16/2024 8:51 AM NETWORKER POTASSIUM, WHOLE BLOOD STAT 8:44 AM NETWORKER POCT GLUCOSE DEVICE Routine 08/16/2024 8 :[address] SINUS STEALTH WO CONTRAST Schedule Routine, Read Routine (OP Routine) 07/06/2024 8:44 AM NETWORKER Polyp of nasal cavity MO REMOVAL IMPACTED CERUMEN INSTRUMENTATION UNILAT Routine 06/01/2024 9:45 AM NETWORKER Impacted cerumen of left ear COLONOSCOPY 05/19/2023 11:10 AM CDT from Last 3 Months or Most Recently Relevant to Health Maintenance Results * Surgical pathology (08/16/2024 2:22 PM NETWORKER) Tissue (Mass/Tumor/Lesio n) 08/16/2024 12:22 PM NETWORKER Narrative PATHOLOGY [facility] ([place]) - 08/17/2024 12:58 PM NETWORKER EPIC results best viewed via link to PDF [facility] Department of Pathology [address] [place], [place] [id number] Note to Patients: This report may contain [...] the details. Final Report Patient Name: ??TRISH VALENCIALizzie Address: ??[address], ??[place], [place] ??[address]- Gender: ??F : ??1950 (Age: 74) Service: ??Surgery Location: ??[facility] #: ??[id number] Patient Type: ??[facility] SDS Accession # ?[id number] Taken: ??08/16/2024 Received: ??08/16/2024 Accessioned: ??08/16/2024 Reported: [...] single formalin filled container labeled with TRISH ANNIE and right nasal cavity mass . ??It [...] determined by the Surgical Pathology Department at [facility] as part of an ongoing quality compliance manager program and in compliance with federally [...] characteristics determined by the Surgical Pathology Department [facility]. ??It has not been cleared or approved by the U. S. Food and Drug Administration. Note for decalcified specimens: This assay has not been validated on decalcified tissues. Results should be interpreted with caution given the possibility of false negativity on decalcified specimens us Tabitha Giles DO LAB PATHOLOGY ORDERABLES Fin al Result PATHOLOGY [facility] ([place]) [address] [place] [address] * MO AN ELECTIVE ENDOTRACHEAL AIRWAY (08/16/2024 12:19 PM NETWORKER) Narrative Clementine Xavier CRNA - 08/16/2024 12:19 PM NETWORKER Clementine Xavier CRNA ? 08/16/2024 12:20 PM Airway Patient location: OR Urgency: elective Indications for airway management: anesthesia and airway protection Difficult airway: no Staff: Supervising provider: Hung Mitchell MD Placed by: PRODUCT MANAGEMENT INTERN: Clementine Xavier CRNA Emergent airway documentation: Risks [...] loose prior to intubation. No change post-intubation. us Hung Mitchell MD ANESTHESIA ORDERABLES Sarah l Result * ECG 12 lead (08/16/2024 8:51 AM NETWORKER) 08/16/2024 8:51 AM NETWORKER Narrative [facility] - 08/16/2024 12:25 PM NETWORKER Vent Rate: 59 bpm RR Interval: 1014 msec MO Interval: 163 msec QRS Duration: 137 msec QT Interval: 438 msec QTC Interval: 436 msec P-R-T [place]: 79 - 47 - -3 degrees IMPRESSION: SINUS BRADYCARDIA Right bundle branch block ABNORMAL ECG Electronically Signed By: Walt Perales MD Tabitha Giles DO ECG ORDERABLES Final Result Performing Organization Address City/[facility] Co de Phone Number [facility] * Potassium, whole blood (08/16/2024 8:44 AM NETWORKER) Potassium, bld 3.8 3.3 - 4.9 mmol/L Comment: Interpretive Data This method is not able to assess for hemolysis, which may falsely increase potassium concentrations. If further testing is needed to evaluate this result, consider in-laboratory plasma potassium. Current Interpretive Data was last revised on 2022. Blood 08/16/2024 8:44 AM NETWORKER 08/16/2024 8:47 AM NETWORKER Tabitha Giles DO LAB BLOOD ORDERABLES Final R esult Performing Organization Address City/[facility] Co de Phone Number [facility] ([place]) [address] [facility] [employer] [address] * POCT glucose (08/16/2024 8:43 AM NETWORKER) Glucose, POC 186 70 - 199 mg/dL Blood 08/16/2024 8:43 AM NETWORKER 08/16/2024 8:43 AM NETWORKER Tabitha Giles DO LAB POCT ORDERABLES - DEVICE Final Result Performing Organization Address City/[facility]/ZIP Co de Phone Number [facility] ([place]) [address] [facility] Department [place] [address] * CT Sinus Stealth WO Contrast (07/06/2024 8:44 AM NETWORKER) Anatomical Region Laterality Modality Head N/A Computed Tomogra phy 07/06/2024 12:3 6 PM NETWORKER Narrative 07/06/2024 12:44 PM NETWORKER EXAM DESCRIPTION: ?? CT SINUS STEALTH WO [...] PM T: ??07/06/2024 12:44 PM Report ID: [id number] Reading Location: ??[id number] Procedure Note Yaakov Ring MD - 07/06/2024 [...] Yaakov Ring M.D. MM: MM Report ID: [id number] Reading Location: [id number] Tabitha Giles DO IMG CT PROCEDURES Final Resu lt * [place] REMOVAL IMPACTED CERUMEN INSTRUMENTATION UNILAT (06/01/2024 9:45 AM NETWORKER) Narrative Tabitha Giles DO - 06/01/2024 9:45 AM NETWORKER Tabitha Giles, DO ? 06/01/2024 12:13 PM Ear Cerumen Removal Performed by: Tabitha Giles, Authorized by: Tabitha Giles, ?? Consent Given [...] the procedure well with no immediate complications us Tabitha Giles DO IN CLINIC/BEDSIDE ORDERABLES Final Result * COLONOSCOPY (05/19/2023 11:10 AM CDT) Anatomical Region Laterality Modality Other Narrative Procedure Note Radu Alvarado MD - 05/19/2023 11:10 AM CDT [facility] Patient Name: Trish Valencia Procedure Date: 05/19/2023 11:10AM Date of : 1950 Admit Type: Outpatient Age: 72 Gender: Female Attending MD: Radu Alvarado M.D. Room: [facility] ENDOSCOPY ROOM 02 Note Status: Finalized [...] The scope was passed under direct vision.The [id number] was introduced through the anusand advanced to the the ileocolonic anastomosis. The quality of the bowel preparation was excellent. The quality of the bowel preparation was evaluatedusing the BBPS ([place] Bowel Preparation Scale) withscores of: Right Colon [...] On: 05/19/2023 11:10 AM Recognized by the [place] [employer] for promoting quality in endoscopy Radu Alvarado MD ENDOSCOPY PROCEDURES Final R esult from Last 3 Months or Most Recently Relevant to Health Maintenance Insurance COMMERCIAL [facility] MEDICARE [facility] Address: [facility] [address] [place] [address] [facility] MEDICARE SOLUTIONS MEDICARE COMMERCIAL GENERIC Advance Directives For more information, please contact: [phone] * Full Code (Latest Code Status on File) Date Activated Date Inactivated Comments 05/19/2023 10:55 AM 05/19/2023 4:24 PM * Full Code Date Activated Date Inactivated Comments 05/29/2020 9:26 AM 05/29/2020 3:37 PM * Full Code Date Activated Date Inactivated Comments 04/25/2019 6:38 PM 04/29/2019 4:23 PM Care Teams Supervisor Travel Information Center Relationship Specialty Start Date End Date Oh Erwin MD PCP - General Internal Medicine 03/09/19 Kunal Fritz MD Data Base Administrator Gastroenterology 04/03/19 Radu Alvarado MD Surgeon Colon and Rectal Surgery 05/30/19
--- OUTSIDE RECORDS SUMMARY | 2024-08-24 07:59 | XMS_ITS | Continuity of Care Document ---
Author Organization [facility] Address [address] [place] [address] Phone Care Team Providers Care Pharmacy Technician Assistant Name Role Phone [facility] Unavailable Unavailable Procedures Procedure Date MRI lwr extrm joint, w/contrast 009 Advance Directives Directive Yes / No Effective Date File Name No Information Encounters Encounter Description Practice Location Reason(s) For Visit Diagnoses Date Provider Providers Copied on Encounter [facility], [address], [place], [place], [id number], [place] tel:[phone] [facility] No Information [facility]. [address], [place], [place], [id number], [place]. tel:[phone] Family History Family Member Type Diagnosis Age At Onset No Information Payers Payer name Insurance type Covered alliance party ID Lisseth roy(s) Sepideh Blue Cross Blue Shiel d [place] [id number] Social History Type Description Quantity Date Captured [...]
== END 2024-08-24 07:53 | disposition home or self-care (01) ==
PROVIDERS: PCP Internal Medicine; Visit Provider Internal Medicine
DX: Z12.31 Encounter for screening mammogram for malignant neoplasm of breast (principal)
CPT/HCPCS: 77063; 77067

== ENCOUNTER 2025-01-26 08:44 | Outpatient (CLI) | payer MEDICARE, SELFPAY ==
--- OUTSIDE RECORDS SUMMARY | 2025-01-26 08:47 | XMS_ITS | Clinical Summary ---
Author Organization [facility] Address [address] [place] [address] Care Team Providers Care Physician Underwriter Name Role Phone Unavailable Primary Care Provider Unavailabl e Social History Tobacco Use Types Packs/Day Years Used Date Smoking Tobacco: Never Assessed Comments Unknown Sex and Gender Information Value Date Recorded Sex Assigned at Not on file Legal Sex Female 7:41 AM CDT Gender Identity Not on file Sexual Orientation Not on file Plan of Treatment Health Maintenance Due Date Last Done Comments Hepatitis C 1966 DTaP, Tdap and Td Vaccines ( 1 - Tdap) 1967 Pneumococcal Vaccine: 50+ Ye ars (1 of 1 - PCV) 1998 Zoster Vaccines (1 of 2) 1998 Dexa Scan (General) 2013 RSV Immunization or 60+ Years (1 - 1-dose 75+ series) 2023 COVID-19 Vaccine (2023-2 5 season) 2024 Meningococcal B Vaccine Aged Out No l onger eligible based on patient's age to complete this topic Meningococcal Vaccine Aged Out No eusebia angus eligible based on patient's age to complete this topic RSV Immunizations Under 20 Months Aged Out No longer eligible based on patient's age to complete this topic
--- OUTSIDE RECORDS SUMMARY | 2025-01-26 08:47 | XMS_ITS ---
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 Assessment & Plan (10/05/2024 9:56 AM CDT): Continue nasal saline twice daily Follow up in 6 months to recheck Assessment & Plan (08/24/2024 10:40 AM INSIDE SALES TRAINER): Right middle turbinate Nasal saline spray (Simply saline, Little Remedies, Bamberg, Aston) 2 second sprays or 2 squeezes into each nostril while looking down over the sink, do not need to sniff in three times daily Continue to sniff in and spit out for one more week Follow up in 4-6 weeks to recheck Polyp of nasal cavity 06/01/2024 Assessment & Plan (06/01/2024 10:14 AM INSIDE SALES TRAINER): Ushaped pillow or Total pillow donut shape to take pressure off the Left ear Bactroban ointment to left ear twice daily If nose bleeds return, Nasal saline spray (Simply saline, Little Remedies, Bamberg, Aston) 2 second sprays or 2 squeezes into each nostril while looking down over the sink, do not need to sniff in daily Call if no improvement in next few weeks CT sinus, consider Nasal Endoscopy with Removal of nasal polyp based on CT Sinus results Epistaxis 06/01/2024 Assessment & Plan (06/01/2024 10:14 AM INSIDE SALES TRAINER): Ushaped pillow or Total pillow donut shape to take pressure off the Left ear Bactroban ointment to left ear twice daily If nose bleeds return, Nasal saline spray (Simply saline, Little Remedies, Bamberg, Aston) 2 second sprays or 2 squeezes into each nostril while looking down over the sink, do not need to sniff in daily Call if no improvement in next few weeks CT sinus, consider Nasal Endoscopy with Removal of nasal polyp based on CT Sinus results Cellulitis of left external ear 06/01/2024 Assessment & Plan (06/01/2024 10:14 AM INSIDE SALES TRAINER): Ushaped pillow or Total pillow donut shape to take pressure off the Left ear Bactroban ointment to left ear twice daily If nose bleeds return, Nasal saline spray (Simply saline, Little Remedies, Bamberg, Aston) 2 second sprays or 2 squeezes into each nostril while looking down over the sink, do not need to sniff in daily Call if no improvement in next few weeks CT sinus, consider Nasal Endoscopy with Removal of nasal polyp based on CT Sinus results Screening for malignant neoplasm of colon 2019 Overview (04/25/2020): Added automatically from request for surgery [id number] History of colon cancer 05/31/2019 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 Past Treatment and Therapy Plans No past plan information found. Lifetime Dose Tracking * Chemical Lifetime Dose Automatic Entry Manual Entr y DLP 7,252 mGycm 7,252 mGycm 0 mGycm Treatment Summaries Malignant neoplasm of ascending colon (HCC)* Images from the original note were not included. [facility] [address] [place] [address] This Survivorship Care Plan is a cancer [...] General Information Patient name Trish Monique (home) [phone] (work) Date of 1950 Health Care Providers (Including Names, Institutions) Provider Name: Contact Information: Primary Care Physician Oh Erwin MD [phone] Surgeon Radu Alvarado MD [phone] Radiation Oncologist Medical Oncologist Customer Acquisition Manager Kunal Rodríguez MD [phone] Other Providers Treatment Summary Cancer Diagnosis Information [...] Medical oncology and Surgeon if both are [facility]) History and Physical every 3 months [...] Help learning to eat healthier, call the finishing powder press operator at: [facility] . Have an active lifestyle, strive for [...] physician. Resources you may be interested in: [facility] A National Cancer [facility] http://www.[facility]/ [facility] Information Center 1st floor of [facility] [phone]. Computer access, educational material, counseling services (FREE) United Ostomy Association: the place for ostomy resources, advocacy, and support. www.ostomy.org Ostomy nurse at [facility] can be reached at [phone] Online Resources: www.cancer.net; http://www.cdc.gov/cancer/survivorship; http://www.cancercare.org/tagged/post-treatment_survivorship; http://www.cancer.gov/about-cancer/coping/survivorship [employer]: https://survivorship.cancer.gov/ an online tool for cancer survivors andcaregivers created by the [place] and the National Cancer [employer]. It provides: Information on dealing with side effects from cancer and treatment Caregivers with support and resources Practical advice about talking to friends and family about cancer Questions to ask their health care team Help understanding their rights in the workplace
--- OUTSIDE RECORDS SUMMARY | 2025-01-26 08:47 | XMS_ITS ---
Author Organization [facility] Address [address] [place], [place] [id number] Care Team Providers Care Map Plotter Name Role Phone TAL NG Unavailable [phone] Oh Erwin Unavailable Unavailable RIRI MARISCAL Unavailable [phone] Allergies Allergen (clinical drug ingredient) Drug/Non Drug Allergy documented on EMR Reaction Allergy Type Onset Date Status Product containing sulfonamide (product) (uncoded) Unknown Allergy 01/10/2015 active Substance with penicillin structure and antibacterial mechanism of action (substance) Penicillins Unknown Drug Allergy 01/10/2015 active REASON FOR VISIT *General care Medications Medication SIG (Take, Route, Frequency, Duration) Notes Start Date End Date Status cinnamon bark 500 MG Oral Capsule ORAL cinnamon bark 500 MG Oral CapsuleOriginal Medicationcinnamon bark 500 MG Oral Capsule *Reorder from [employer] for eRx and Interaction Alerts* 01/11/20 15 Active ciclopirox 80 MG/ML Topical Solution ciclopirox 80 MG/ML Topical SolutionOriginal Medicationciclopirox 80 MG/ML Topical Solution *Reorder from [employer] for eRx and Interaction Alerts* 01/11/20 15 Active docosahexaenoic acid 120 MG / eicosapentaenoic acid 180 MG Oral Capsule ORAL docosahexaenoic acid 120 MG / eicosapentaenoic acid 180 MG Oral CapsuleOriginal Medicationdocosahexaenoic acid 120 MG / eicosapentaenoic acid 180 MG Oral Capsule *Reorder from [employer] for eRx and Interaction A 01/11/20 15 Active Spironolactone 25 MG Oral Tablet ORAL spironolactone 25 MG Oral TabletOriginal Medicationspironolactone 25 MG Oral Tablet *Reorder from [facility] for eRx and Interaction Alerts* 01/11/20 15 Active Atenolol 25 MG Oral Tablet ORAL atenolol 25 MG Oral TabletOriginal Medicationatenolol 25 MG Oral Tablet *Reorder from [facility] for eRx and Interaction Alerts* 01/11/20 15 Active metFORMIN HCl 500 MG 1 tablet with a meal Orally Once a day Active Vital Signs Height 66.00 in 12/06/2024 Weight 180 lbs 12/06/2024 BMI 29.05 kg/m2 12/06/2024 Height-cm 167.64 cm 12/06/2024 Weight-kg 81.65 kg 12/06/2024 Encounters Encounter Location Date Provider Diagnosis [address] [id number] 12/06/2024 RIRI MARISCAL Tinea unguium B35.1 ; Pain in right toe(s) M79.674 ; Pain in left toe(s) M79.675 ; Atherosclerosis of [place] arteries of extremities with intermittent claudication, bilateral legs I70.213 and Type 2 diabetes mellitus with other circulatory complications E11.59 Assessments Encounter Date Diagnosis (ICD Code) Assessment Notes Treatment Notes Treatment Clinical Notes Section Notes 12/06/2024 Tinea unguium (ICD-10 - B35.1) NAIL DEBRIDEMENT: Nails 1-5 Bilateral were debrided extensively with nail nippers and emery board, reducing length and girth to pink healthy tissue with any subungual debris and necrotic tissue removed 12/06/2024 Pain in right toe(s) (ICD-10 - M79.674) 12/06/2024 Pain in left toe(s) (ICD-10 - M79.675) 12/06/2024 Atherosclerosis of [place] arteries of extremities with intermittent claudication, bilateral legs (ICD-10 - I70.213) 12/06/2024 Type 2 diabetes mellitus with other circulatory complications (ICD-10 - E11.59) Diabetic Foot Care: The patient was educated on diabetes and the lower extremity. The patient was instructed to check his feet daily to report any problems or signs of infection immediately. The patient was provided written information on Diabetic Foot Care as well as the Amputation Prevention Guide. Plan Of Treatment Treatment Notes Assessment Notes Tinea unguium NAIL DEBRIDEMENT: Na ils 1-5 Bilateral were debrided extensively with nail nippers and emery board, reducing length and girth to pink healthy tissue with any subungual debris and necrotic tissue removed Type 2 diabetes mellitus wit h other circulatory complications Diabetic Foot Care: The patient was educated on diabetes and the lower extremity. The patient was instructed to check his feet daily to report any problems or signs of infection immediately. The patient was provided written information on Diabetic Foot Care as well as the Amputation Prevention Guide. Next Appt Details Follow Up: 10 - 12 weeks, Re ason: At-Risk Foot care, sooner if problems develop. Provider Name:RIRI ELIZALDE, 02/07/2025 08:30:00 AM, [address] [place] [address], [id number], Progress Notes * LILY VALENCIA SDOB: [birth year] (74 yo F)Acc No.[id number]:12/06/2024 Patient: LILY BLACKBURN Provider: Jordyn MARISCAL :1950 A ge:74 Y S ex:Female Date:12/06/2024 Address:[address] [place], [place] [id number] Subjective: * Chief Complaints: * 1 . *General care. * HPI: H PI: General care P atient presents to the office for diabetic foot care. Patient states that their nails are thickened, elongated and painful. Patient states that it is aggravated by shoe gear. Onset is gradual., Patient denies taking blood thinners., Date last seen by Dr. Erwin was 07/2024., Initials [facility]. * ROS: G eneral / Constitutional: Patient denies w eakness. M usculoskeletal: Patient denies a rthritis, joint stiffness. ? P eripheral Vascular: Patient denies b lanching of skin, cold extremities, decreased sensation in extremities. S kin: Patient complains of f ungal nails, nail changes. ? N eurologic: Patient denies d izziness, gait abnormality, headache. * Medical History: N europathy, Cancer (type of cancer), Leg/Feet cramps, Diabetic, Varicose veins, Hypertension. * Surgical History: c olon caner surgery , breast cancer surgery . * Family History: F ather: PRN - Father: :: Cancer,,known absent . M other: PRN - Mother: :: Hypertension,,known absent , :: Neurological disorder,,known absent , :: Stroke,,known absent , :: Diabetes,,known absent . S ister: SIB - Sister: :: Stroke,,known absent , :: Hypertension,,known absent . * Social History: M igrated Social History: M igrated Social History: History of tobacco use : , Smoking Status : Never smoked. * Medications: T aking metFORMIN HCl 500 MG Tablet 1 tablet with a meal Orally Once a day , Taking Atenolol 25 MG Oral Tablet ORAL , Notes to Pharmacist: atenolol 25 MG Oral TabletOriginal Medicationatenolol 25 MG Oral Tablet *Reorder from [facility] for eRx and Interaction Alerts*, Taking Spironolactone 25 MG Oral Tablet ORAL , Notes to Pharmacist: spironolactone 25 MG Oral TabletOriginal Medicationspironolactone 25 MG Oral Tablet *Reorder from [facility] for eRx and Interaction Alerts*, Taking ciclopirox 80 MG/ML Topical Solution , Notes to Pharmacist: ciclopirox 80 MG/ML Topical SolutionOriginal Medicationciclopirox 80 MG/ML Topical Solution *Reorder from [facility] for eRx and Interaction Alerts*, Taking cinnamon bark 500 MG Oral Capsule ORAL , Notes to Pharmacist: cinnamon bark 500 MG Oral CapsuleOriginal Medicationcinnamon bark 500 MG Oral Capsule *Reorder from [facility] for eRx and Interaction Alerts*, Taking docosahexaenoic acid 120 MG / eicosapentaenoic acid 180 MG Oral Capsule ORAL , Notes to Pharmacist: docosahexaenoic acid 120 MG / eicosapentaenoic acid 180 MG Oral CapsuleOriginal Medicationdocosahexaenoic acid 120 MG / eicosapentaenoic acid 180 MG Oral Capsule *[facility] and Interaction A, Medication List reviewed and reconciled with the patient * Allergies: P roduct containing sulfonamide (product): Allergy - Onset Date 01/10/2015, Penicillins: Allergy - Onset Date 01/10/2015. Objective: * Vitals: S hoe Size: 9.5, Wt: 180 lbs, Wt-k.65 kg, Ht: 66.00 in, Ht-cm: 167.64 cm, BMI: 29.05 Index, Body Surface Area: 1.95. * Examination: P hysical Examination: General appearance: A lert, pleasant, well-nourished and in no acute distress. D ermatologic: Skin findings: S kin is thin, atrophic and lacking pedal hair. Nail pathology: N ails 1, 2, 3, 4, and 5 bilateral are elongated, thick, discolored, and dystrophic with subungual debris. They are painful to palpation. ? V ascular: Dorsalis pedis pulse: 1 /4 b ilateral. Posterior tibial pulse: 0 /4 bilateral. Capillary refill: g reater than 3 seconds. Edema: N o edema bilateral. N eurologic: Gross sensation G rossly intact to light touch. There is negative Tinel's sign. M usculoskeletal: Muscle Strength M uscle strength is 5/5 in regards to dorsiflexion, plantarflexion, inversion, and eversion in bilateral lower extremities. ? Assessment: * Assessment: 1. T inea unguium - B35.1 (Primary) 2 . P ain in right toe(s) - M79.674? 3. P ain in left toe(s) - M79.675 4 . A therosclerosis of [place] arteries of extremities with intermittent claudication, bilateral legs - I70.213 5 . T ype 2 diabetes mellitus with other circulatory complications - E11.59 Plan: * Treatment: 2. T ype 2 diabetes mellitus with other circulatory complications Notes: Diabetic Foot Care: The patient was educated on diabetes and the lower extremity. The patient was instructed to check his feet daily to report any problems or signs of infection immediately. The patient was provided written information on Diabetic Foot Care as well as the Amputation Prevention Guide. * Immunizations: Immunization record has been reviewed and updated. * Follow Up: 1 0 - 12 weeks (Reason: At-Risk Foot care, sooner if problems develop.) * Billing Information: * Visit Code: 19969 Office Visit, Est Pt., Level 3. * Procedure Codes: * Electronic signature of PATEL MARISCAL DPM on 01/26/2025 at 08:47 AM CDT Sign off status: Pending * Provider: Jordyn MARISCAL Date: 0 12/06/2024 Generated for Cam webster/[place]/Mariaitting on: 0 01/26/2025 08:47 AM CDT History and Physical Notes * HPI (History of Present Illness) Category Sub-Category Detail Notes Category Not es HPI General care Patient presents to the office for diabetic foot care. Patient states that their nails are thickened, elongated and painful. Patient states that it is aggravated by shoe gear. Onset is gradual., Patient denies taking blood thinners., Date last seen by Dr. Erwin was 07/2024., Initials [facility] Examination Category Sub-Category Detail Notes Category Not es Dermatologic Skin findings: Skin is thin, at rophic and lacking pedal hair Nail pathology: Nails 1, 2, 3, 4, an d 5 bilateral are elongated, thick, discolored, and dystrophic with subungual debris. They are painful to palpation Neurologic Gross sensation Grossly intact t o light touch. There is negative Tinel's sign Vascular Dorsalis pedis pulse: 1/4 bilateral Edema: No edema bilateral Capillary refill: greater than 3 secon ds Posterior tibial pulse: 0/4 bilateral Physical Examination General appearance: Alert, pleasant, well-nourished and in no acute distress Musculoskeletal Muscle Strength Muscle strength is 5/5 in regards to dorsiflexion, plantarflexion, inversion, and eversion in bilateral lower extremities
--- OUTSIDE RECORDS SUMMARY | 2025-01-26 08:47 | XMS_ITS | Encounter Summary ---
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
--- OUTSIDE RECORDS SUMMARY | 2025-01-26 08:47 | XMS_ITS | Continuity of Care Document ---
Author Organization [facility] Address [address] [place] [address] Phone Care Team Providers Care Esthetic Dermatologist Name Role Phone [facility] Unavailable Unavailable Procedures Procedure Date MRI lwr extrm joint, w/contrast 009 Advance Directives Directive Yes / No Effective Date File Name No Information Encounters Encounter Description Practice Location Reason(s) For Visit Diagnoses Date Provider Providers Copied on Encounter [facility], [address], [place], [place], [id number], [place] tel:[phone] [facility] No Information [facility]. [address], [address], [place], [place], [id number], [place]. tel:[phone] Family History Family Member Type Diagnosis Age At Onset No Information Payers Payer name Insurance type Covered green party ID Lisseth roy(s) [employer] Blue [employer] Blue [employer] d [place] [id number] Social History Type Description Quantity Date Captured [...]
--- OUTSIDE RECORDS SUMMARY | 2025-01-26 08:47 | XMS_ITS | Clinical Summary ---
Author Organization [facility] Address [address] [place] [address] Care Team Providers Care Policy Change Clerks Supervisor Name Role Phone Oh Erwin MD Primary Care Provider [phone] Kunal Fritz MD Unavailable + Radu Alvarado MD Unavailable [phone] Allergies Active Allergy Reactions Criticality Noted Date Comments Penicillins Rash Medium 04/03/2019 Sulfa (Sulfonamide Antibiotics) Hives,Rash Medium 03/25 Medications atenolol (TENORMIN) 25 mg tablet TAKE 1 TABLET BY MOUTH EVERYDAY AT BEDTIME FOR BLOOD PRESSURE 1 03/31/2019 Active atorvastatin (LIPITOR) 20 mg tablet Take 1 tablet (20 mg total) by mouth nightly 03/31/2019 Active metFORMIN XR (GLUCOPHAGE XR) 500 mg 24 hr tablet Take 2 tablets (1,000 mg total) by mouth nightly 1 03/29/2019 Active spironolactone (ALDACTONE) 25 mg tablet Take 1 tablet (25 mg total) by mouth every morning Active Active Problems Problem Noted Date Diagnosed Date 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 Assessment & Plan (10/05/2024 9:56 AM CDT): Continue nasal saline twice daily Follow up in 6 months to recheck Assessment & Plan (08/24/2024 10:40 AM TOOL DIE MAKER): Right middle turbinate Nasal saline spray (Simply saline, [employer] Remedies, [place], [place]) 2 second sprays or 2 squeezes into each nostril while looking down over the sink, do not need to sniff in three times daily Continue to sniff in and spit out for one more week Follow up in 4-6 weeks to recheck Polyp of nasal cavity 06/01/2024 Assessment & Plan (06/01/2024 10:14 AM TOOL DIE MAKER): Ushaped pillow or Total pillow donut shape to take pressure off the Left ear Bactroban ointment to left ear twice daily If nose bleeds return, Nasal saline spray (Simply saline, [employer], [place], [place]) 2 second sprays or 2 squeezes into each nostril while looking down over the sink, do not need to sniff in daily Call if no improvement in next few weeks CT sinus, consider Nasal Endoscopy with Removal of nasal polyp based on CT Sinus results Epistaxis 06/01/2024 Assessment & Plan (06/01/2024 10:14 AM TOOL DIE MAKER): Ushaped pillow or Total pillow donut shape to take pressure off the Left ear Bactroban ointment to left ear twice daily If nose bleeds return, Nasal saline spray (Simply saline, [employer], [place], [place]) 2 second sprays or 2 squeezes into each nostril while looking down over the sink, do not need to sniff in daily Call if no improvement in next few weeks CT sinus, consider Nasal Endoscopy with Removal of nasal polyp based on CT Sinus results Cellulitis of left external ear 06/01/2024 Assessment & Plan (06/01/2024 10:14 AM TOOL DIE MAKER): Ushaped pillow or Total pillow donut shape to take pressure off the Left ear Bactroban ointment to left ear twice daily If nose bleeds return, Nasal saline spray (Simply saline, [employer], [place], [place]) 2 second sprays or 2 squeezes into each nostril while looking down over the sink, do not need to sniff in daily Call if no improvement in next few weeks CT sinus, consider Nasal Endoscopy with Removal of nasal polyp based on CT Sinus results Screening for malignant neoplasm of colon 2019 Overview (04/25/2020): Added automatically from request for surgery [id number] History of colon cancer 05/31/2019 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 Overview (04/04/2019): Added automatically from request for surgery [id number] Malignant neoplasm of ascending colon 04/03/2019 Immunizations Immunization Administration Dates Next Due Influenza, Trivalent, High [...] Type 2 diabetes mellitus (HCC) Colon cancer (HCC) Family History Medical History Relation Name [...] on file Legal Sex Female 6:36 PM TOOL DIE MAKER Gender Identity Not on file Sexual Orientation Not on file Obstetrics History Last Filed Vital Signs Vital Sign Reading Time Taken Comments Blood Pressure 127/56 08/16/2024 2:30 PM TOOL DIE MAKER Pulse 68 08/16/2024 2:30 PM TOOL DIE MAKER Temperature 36.3 C (97.4 F) 08/16/2024 1:58 PM TOOL DIE MAKER Respiratory Rate 20 08/16/2024 2:30 PM TOOL DIE MAKER Oxygen Saturation 94% 08/16/2024 2:30 PM TOOL DIE MAKER Inhaled Oxygen Concentration - - Weight 81.4 kg (179 lb 7.3 oz) 08/16/2024 8:29 A M TOOL DIE MAKER Height 165.1 cm (5' 5) 08/16/2024 8:29 AM TOOL DIE MAKER Body Mass Index 29.86 08/16/2024 8:29 AM TOOL DIE MAKER Plan of Treatment Health Maintenance Due Date Last Done Comments Depression Screening 1950 Hepatitis C Screening 1950 Osteoporosis Screening-Bone Density Scan 1950 DTaP/Tdap/Td Vaccine (1 - Tdap) 1959 Hepatitis B Screening 1966 Zoster Vaccine (1 of 2) 1998 Well Visit 65+ 2013 Pneumococcal vaccine 65+ (3 of 3 - PCV20 or PCV21) 06/25/2020 06/25/2015, 07/25/2007 Fall Risk Assessment 05/19/2024 05/19/2023 Influenza Vaccine (Season Ended) 2025 04/26/2019, 05/31/2016, 05/31/2015, Additional history exists Colon Cancer Screening-CT Colonography Discontinued 05/19/2023, 05/29/2020 Colon Cancer Screening-Colonoscopy Discontinued 05/19/2023, 05/29/2020 Colon Cancer Screening-DNA Stool Discontinued 05/19/20 23, 05/29/2020 Colon Cancer Screening-FIT Discontinued 05/19/2023, Colon Cancer Screening-FOBT Discontinued 05/19/2023, 1 07/29/2019 Colon Cancer Screening-Sigmoidoscopy Discontinued 05/19/2023, 05/29/2020 Colorectal Cancer Screening Discontinued Medical Devices Implanted Type Area Plant Control Aide Device Identifier Shelf Expiration Date Model / Serial / Lot Breast Breast Bilateral: Breast Procedures Procedure Name Priority Date/Time Associated Diagnosis Comments COLONOSCOPY 05/19/2023 11:10 AM CDT from Last 3 Months or Most Recently Relevant to Health Maintenance Results * COLONOSCOPY (05/19/2023 11:10 AM CDT) Anatomical Region Laterality Modality Other Narrative Procedure Note Radu Alvarado MD - 05/19/2023 11:10 AM CDT [facility] Patient Name: Trish Monique Procedure Date: 05/19/2023 11:10AM Date of : 1950 Admit Type: Outpatient Age: 72 Gender: Female Attending MD: Radu Alvarado M.D. Room: [facility] ENDOSCOPY ROOM 02 Note Status: Finalized [...] The scope was passed under direct vision.The [id number] was introduced through the anusand advanced to the the ileocolonic anastomosis. The quality of the bowel preparation was excellent. The quality of the bowel preparation was evaluatedusing the BBPS ([place] Bowel Preparation Scale) withscores of: Right Colon [...] On: 05/19/2023 11:10 AM Recognized by the [place] [employer] for promoting quality in endoscopy Radu Alvarado MD ENDOSCOPY PROCEDURES Final R esult from Last 3 Months or Most Recently Relevant to Health Maintenance Insurance COMMERCIAL GENERIC MEDICARE [facility] MEDICARE ADVANTAGE MEDICARE COMMERCIAL GENERIC Advance Directives For more information, please contact: [phone] * Full Code (Latest Code Status on File) Date Activated Date Inactivated Comments 05/19/2023 10:55 AM 05/19/2023 4:24 PM * Full Code Date Activated Date Inactivated Comments 05/29/2020 9:26 AM 05/29/2020 3:37 PM * Full Code Date Activated Date Inactivated Comments 04/25/2019 6:38 PM 04/29/2019 4:23 PM Care Teams Policy Change Clerks Supervisor Relationship Specialty Start Date End Date Oh Erwin MD PCP - General Internal Medicine 03/09/19 Kunal Fritz MD Un[employer]anned Aircraft Systems Roboticist Gastroenterology 04/03/19 Radu Alvarado MD Surgeon Colon and Rectal Surgery 05/30/19
--- OUTSIDE RECORDS SUMMARY | 2025-01-26 08:47 | XMS_ITS | Continuity of Care Document ---
Author Organization [facility] Address [address] [place] [address] Phone Care Team Providers Care Experimental Rocket Sled Mechanic Name Role Phone Unavailable Unavailable Unavailable Procedures [...] Date Provider Providers Copied on Encounter [facility], [address] [facility] [address], [place], [place], [id number], [place] tel:[phone] [facility] No Information 9 No Information [facility], [address] [place], [place], [id number], [place] tel:[phone] [facility] No Information 9 No Information [facility], [address], [place], [place], [id number], [place] tel:[phone] [facility] No Information 9 No Information Office/outpat ient visit,est, mod [facility], [address] [facility] [address], [place], [place], [id number], [place] tel:[phone] [facility] No Information No Information Office/outpat ient visit,new, PROFICIO [facility], [address] [facility] [address], [place], [place], [id number], [place] tel:[phone] [facility] No Information 9 No Information Family History Family Member Type Diagnosis Age At Onset No Information Payers Payer name Insurance type Covered alliance party ID Authoriza tisiva(s) [employer] Blue Cross Blue Shiel d [facility] [id number] Social History Type Description Quantity Date Captured [...]
--- OUTSIDE RECORDS SUMMARY | 2025-01-26 08:47 | XMS_ITS | Referral Summary ---
Author Organization [facility] Address [address] [place] [address] Care Team Providers Care Cabin Agent Name Role Phone Oh Erwin MD Primary Care Provider [phone] Kunal Fritz MD Unavailable + Radu Alvarado MD Unavailable [phone] Allergies Active Allergy Reactions Criticality Noted Date [...] recheck Assessment & Plan (08/24/2024 10:40 AM CNC MAINTENANCE MECHANIC): Right middle turbinate Nasal saline spray (Simply saline, Little Remedies, [place], [place]) 2 second sprays or 2 squeezes into each nostril while looking down over the sink, do not need to sniff in three times daily Continue to sniff in and spit out for one more week Follow up in 4-6 weeks to recheck Polyp of nasal cavity 06/01/2024 Assessment & Plan (06/01/2024 10:14 AM CNC MAINTENANCE MECHANIC): Ushaped pillow or Total pillow donut shape to take pressure off the Left ear Bactroban ointment to left ear twice daily If nose bleeds return, Nasal saline spray (Simply saline, [employer] Remed[employer], [place], [place]) 2 second sprays or 2 squeezes into each nostril while looking down over the sink, do not need to sniff in daily Call if no improvement in next few weeks CT sinus, consider Nasal Endoscopy with Removal of nasal polyp based on CT Sinus results Epistaxis 06/01/2024 Assessment & Plan (06/01/2024 10:14 AM CNC MAINTENANCE MECHANIC): Ushaped pillow or Total pillow donut shape to take pressure off the Left ear Bactroban ointment to left ear twice daily If nose bleeds return, Nasal saline spray (Simply saline, [employer] Remed[employer], [place], [place]) 2 second sprays or 2 squeezes into each nostril while looking down over the sink, do not need to sniff in daily Call if no improvement in next few weeks CT sinus, consider Nasal Endoscopy with Removal of nasal polyp based on CT Sinus results Cellulitis of left external ear 06/01/2024 Assessment & Plan (06/01/2024 10:14 AM CNC MAINTENANCE MECHANIC): Ushaped pillow or Total pillow donut shape to take pressure off the Left ear Bactroban ointment to left ear twice daily If nose bleeds return, Nasal saline spray (Simply saline, [employer] Remedies, [place], [place]) 2 second sprays or 2 squeezes into each nostril while looking down over the sink, do not need to sniff in daily Call if no improvement in next few weeks CT sinus, consider Nasal Endoscopy with Removal of nasal polyp based on CT Sinus results Screening for malignant neoplasm of colon 2019 Overview (04/25/2020): Added automatically from request for surgery [id number] History of colon cancer 05/31/2019 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 Overview (04/04/2019): Added automatically from request for surgery [id number] Malignant neoplasm of ascending colon 04/03/2019 Immunizations [...] on file Legal Sex Female 6:36 PM CNC MAINTENANCE MECHANIC Gender Identity Not on file Sexual Orientation Not on file Last Filed Vital Signs Vital Sign Reading Time Taken Comments Blood Pressure 127/56 08/16/2024 2:30 PM CNC MAINTENANCE MECHANIC Pulse 68 08/16/2024 2:30 PM CNC MAINTENANCE MECHANIC Temperature 36.3 C (97.4 F) 08/16/2024 1:58 PM CNC MAINTENANCE MECHANIC Respiratory Rate 20 08/16/2024 2:30 PM CNC MAINTENANCE MECHANIC Oxygen Saturation 94% 08/16/2024 2:30 PM CNC MAINTENANCE MECHANIC Inhaled Oxygen Concentration - - Weight 81.4 kg (179 lb 7.3 oz) 08/16/2024 8:29 A M CNC MAINTENANCE MECHANIC Height 165.1 cm (5' 5) 08/16/2024 8:29 AM CNC MAINTENANCE MECHANIC Body Mass Index 29.86 08/16/2024 8:29 AM CNC MAINTENANCE MECHANIC Plan of Treatment Not on file Medical Devices Implanted Type Area Accounts Receivable Assistant Device Identifier Shelf Expiration Date Model / Serial / Lot Breast Breast Bilateral: Breast Procedures Procedure Name Priority Date/Time Associated Diagnosis Comments COLONOSCOPY 05/19/2023 11:10 AM CDT from Last 3 Months or Most Recently Relevant to Health Maintenance Results * COLONOSCOPY (05/19/2023 11:10 AM CDT) Anatomical Region Laterality Modality Other Narrative Procedure Note Radu Alvarado MD - 05/19/2023 11:10 AM CDT [facility] Patient Name: Trish Monique Procedure Date: 05/19/2023 11:10AM Date of : 1950 Admit Type: Outpatient Age: 72 Gender: Female Attending MD: Radu Alvarado M.D. Room: [facility] ENDOSCOPY ROOM 02 Note Status: Finalized [...] The scope was passed under direct vision.The [id number] was introduced through the anusand advanced to the the ileocolonic anastomosis. The quality of the bowel preparation was excellent. The quality of the bowel preparation was evaluatedusing the BBPS ([place] Bowel Preparation Scale) withscores of: Right Colon [...] On: 05/19/2023 11:10 AM Recognized by the [place] [employer] for promoting quality in endoscopy Radu Alvarado MD ENDOSCOPY PROCEDURES Final R esult from Last 3 Months or Most Recently Relevant to Health Maintenance Insurance COMMERCIAL GENERIC MEDICARE [facility] MEDICARE ADVANTAGE MEDICARE COMMERCIAL GENERIC Advance Directives For more information, please contact: [phone] * Full Code (Latest Code Status on File) Date Activated Date Inactivated Comments 05/19/2023 10:55 AM 05/19/2023 4:24 PM * Full Code Date Activated Date Inactivated Comments 05/29/2020 9:26 AM 05/29/2020 3:37 PM * Full Code Date Activated Date Inactivated Comments 04/25/2019 6:38 PM 04/29/2019 4:23 PM Care Teams Cabin Agent Relationship Specialty Start Date End Date Oh Erwin MD PCP - General Internal Medicine 03/09/19 Kunal Fritz MD Lay Out Machine Operator Gastroenterology 04/03/19 Radu Alvarado MD Surgeon Colon and Rectal Surgery 05/30/19
--- OUTSIDE RECORDS SUMMARY | 2025-01-26 08:47 | XMS_ITS | Patient Health Record ---
Author Organization [facility] Address [address] [place], [place] [id number] Care Team Providers Care Insurance Marketing Rep Name Role Phone TAL NG Unavailable [phone] Yaima Oh Unavailable Unavailable NABIL JETT Unavailable [phone] RIRI MARISCAL Unavailable [phone] Allergies Allergen (clinical drug ingredient) Drug/Non Drug Allergy documented on EMR Reaction Allergy Type Onset Date Status Product containing sulfonamide (product) (uncoded) Unknown Allergy 01/10/2015 active Substance with penicillin structure and antibacterial mechanism of action (substance) Penicillins Unknown Drug Allergy 01/10/2015 active Reason For Referral No Information Medications Medication SIG (Take, Route, Frequency, Duration) Notes Start Date End Date Status cinnamon bark 500 MG Oral Capsule ORAL cinnamon bark 500 MG Oral CapsuleOriginal Medicationcinnamon bark 500 MG Oral Capsule *Reorder from [employer] [facility] for eRx and Interaction Alerts* 01/11/20 15 Active ciclopirox 80 MG/ML Topical Solution ciclopirox 80 MG/ML Topical SolutionOriginal Medicationciclopirox 80 MG/ML Topical Solution *Reorder from [employer] [facility] for eRx and Interaction Alerts* 01/11/20 15 Active docosahexaenoic acid 120 MG / eicosapentaenoic acid 180 MG Oral Capsule ORAL docosahexaenoic acid 120 MG / eicosapentaenoic acid 180 MG Oral CapsuleOriginal Medicationdocosahexaenoic acid 120 MG / eicosapentaenoic acid 180 MG Oral Capsule *Reorder from [employer] for eRx and Interaction A 01/11/20 Active metFORMIN HCl 500 MG 1 tablet with a meal Orally Once a day Active Spironolactone 25 MG Oral Tablet ORAL spironolactone 25 MG Oral TabletOriginal Medicationspironolactone 25 MG Oral Tablet *Reorder from [facility] for eRx and Interaction Alerts* 01/11/20 15 Active Atenolol 25 MG Oral Tablet ORAL atenolol 25 MG Oral TabletOriginal Medicationatenolol 25 MG Oral Tablet *Reorder from [facility] for eRx and Interaction Alerts* 01/11/20 15 Active Immunizations Vaccine Route Administration Date Status Comme nts Influenza, high dose seasonal Unknown 04/26/2019 Admini stered Vital Signs Height-cm 167.64 cm 12/06/2024 Weight-kg 81.65 kg 12/06/2024 Height 66.00 in 12/06/2024 Weight 180 lbs 12/06/2024 BMI 29.05 kg/m2 12/06/2024 Encounters Encounter Location Date Provider Diagnosis [address] [id number] 12/06/2024 RIRI MARISCAL Tinea unguium B35.1 ; Pain in right toe(s) M79.674 ; Pain in left toe(s) M79.675 ; Atherosclerosis of [place] arteries of extremities with intermittent claudication, bilateral legs I70.213 and Type 2 diabetes mellitus with other circulatory complications E11.[address] [id number] 02/23/2024 NABIL JETT Other hammer toe(s) (acquired), right foot M20.41 ; Tinea unguium B35.1 ; Other hammer toe(s) (acquired), left foot M20.42 ; Pain in right toe(s) M79.674 ; Pain in left toe(s) M79.675 and Unspecified atherosclerosis of [place] arteries of extremities, bilateral legs I70.[address] [id number] 04/26/2024 NABIL JETT Other hammer toe(s) (acquired), right foot M20.41 ; Tinea unguium B35.1 ; Other hammer toe(s) (acquired), left foot M20.42 ; Pain in right toe(s) M79.674 ; Pain in left toe(s) M79.675 and Unspecified atherosclerosis of [place] arteries of extremities, bilateral legs I70.[address] [id number] 06/28/2024 NABIL JETT Other hammer toe(s) (acquired), right foot M20.41 ; Tinea unguium B35.1 ; Other hammer toe(s) (acquired), left foot M20.42 ; Pain in right toe(s) M79.674 ; Pain in left toe(s) M79.675 and Unspecified atherosclerosis of [place] arteries of extremities, bilateral legs I70.[address] [id number] 09/13/2024 TAL NG Tinea unguium B35.1 ; Pain in right toe(s) M79.674 ; Pain in left toe(s) M79.675 ; Atherosclerosis of [place] arteries of extremities with intermittent claudication, bilateral legs I70.213 and Type 2 diabetes mellitus with other circulatory complications E11.59 Assessments Encounter Date Diagnosis (ICD Code) Assessment Notes Treatment Notes Treatment Clinical Notes Section Notes 02/23/2024 Tinea unguium (ICD-10 - B35.1) Aseptic debridement of elongated thickened nails x 10 using sterile nippers, nails were debrided in length and thickness by 30% utilizing a nail nipper without incident. The patient was educated regarding all treatment options that include topical and oral antifungal treatments. I discussed the options of taking a sample of the nail to confirm diagnosis. Nail clippings were not sent for pathology analysis. The patient was educated why and how the fungal infection evolved in their feet and the patient was given information regarding how to prevent further infection. The patient was told to keep feet dry and change socks. The patient was told to be careful with old shoes and excessive sweating. The patient was educated regarding both OTC and prescription treatments. 02/23/2024 Other hammer toe(s) (acquired), right foot (ICD-10 - M20.41) The patient was educated regarding how to mechanically stabilize their deformity. The patient was given education about shoe recommendations specific for the condition. The patient was educated about custom orthotics and how appropriate shoes and orthotics can prevent further worsening of the deformity. The patient was educated about how bad shoe habits can worsen the condition. NSAIDS, P.T., injections and other conservative treatments were discussed. Both surgical and non surgical treatments were discussed, but conservative options were emphasized. 04/26/2024 Other hammer toe(s) (acquired), right foot (ICD-10 - M20.41) The patient was educated regarding how to mechanically stabilize their deformity. The patient was given education about shoe recommendations specific for the condition. The patient was educated about custom orthotics and how appropriate shoes and orthotics can prevent further worsening of the deformity. The patient was educated about how bad shoe habits can worsen the condition. NSAIDS, P.T., injections and other conservative treatments were discussed. Both surgical and non surgical treatments were discussed, but conservative options were emphasized. 04/26/2024 Tinea unguium (ICD-10 - B35.1) Aseptic debridement of elongated thickened nails x 10 using sterile nippers, nails were debrided in length and thickness by 30% utilizing a nail nipper without incident. The patient was educated regarding all treatment options that include topical and oral antifungal treatments. I discussed the options of taking a sample of the nail to confirm diagnosis. Nail clippings were not sent for pathology analysis. The patient was educated why and how the fungal infection evolved in their feet and the patient was given information regarding how to prevent further infection. The patient was told to keep feet dry and change socks. The patient was told to be careful with old shoes and excessive sweating. The patient was educated regarding both OTC and prescription treatments. 06/28/2024 Tinea unguium (ICD-10 - B35.1) Aseptic debridement of elongated thickened nails x 10 using sterile nippers, nails were debrided in length and thickness by 30% utilizing a nail nipper without incident. The patient was educated regarding all treatment options that include topical and oral antifungal treatments. I discussed the options of taking a sample of the nail to confirm diagnosis. Nail clippings were not sent for pathology analysis. The patient was educated why and how the fungal infection evolved in their feet and the patient was given information regarding how to prevent further infection. The patient was told to keep feet dry and change socks. The patient was told to be careful with old shoes and excessive sweating. The patient was educated regarding both OTC and prescription treatments. 06/28/2024 Other hammer toe(s) (acquired), right foot (ICD-10 - M20.41) The patient was educated regarding how to mechanically stabilize their deformity. The patient was given education about shoe recommendations specific for the condition. The patient was educated about custom orthotics and how appropriate shoes and orthotics can prevent further worsening of the deformity. The patient was educated about how bad shoe habits can worsen the condition. NSAIDS, P.T., injections and other conservative treatments were discussed. Both surgical and non surgical treatments were discussed, but conservative options were emphasized. 09/13/2024 Tinea unguium (ICD-10 - B35.1) NAIL DEBRIDEMENT: Nails 1-5 Bilateral were debrided extensively with nail nippers and emery board, reducing length and girth to pink healthy tissue with any subungual debris and necrotic tissue removed 12/06/2024 Tinea unguium (ICD-10 - B35.1) NAIL DEBRIDEMENT: Nails 1-5 Bilateral were debrided extensively with nail nippers and emery board, reducing length and girth to pink healthy tissue with any subungual debris and necrotic tissue removed 09/13/2024 Pain in right toe(s) (ICD-10 - M79.674) 12/06/2024 Pain in right toe(s) (ICD-10 - M79.674) 06/28/2024 Other hammer toe(s) (acquired), left foot (ICD-10 - M20.42) 04/26/2024 Other hammer toe(s) (acquired), left foot (ICD-10 - M20.42) 02/23/2024 Other hammer toe(s) (acquired), left foot (ICD-10 - M20.42) 02/23/2024 Pain in right toe(s) (ICD-10 - M79.674) 04/26/2024 Pain in right toe(s) (ICD-10 - M79.674) 06/28/2024 Pain in right toe(s) (ICD-10 - M79.674) 12/06/2024 Pain in left toe(s) (ICD-10 - M79.675) 09/13/2024 Pain in left toe(s) (ICD-10 - M79.675) 12/06/2024 Atherosclerosis of [place] arteries of extremities with intermittent claudication, bilateral legs (ICD-10 - I70.213) 09/13/2024 Atherosclerosis of [place] arteries of extremities with intermittent claudication, bilateral legs (ICD-10 - I70.213) 06/28/2024 Pain in left toe(s) (ICD-10 - M79.675) 04/26/2024 Pain in left toe(s) (ICD-10 - M79.675) 02/23/2024 Pain in left toe(s) (ICD-10 - M79.675) 02/23/2024 Unspecified atherosclerosis of [place] arteries of extremities, bilateral legs (ICD-10 - I70.203) Patient educated on risks and aggravating factors of PVD, including conservative treatment options such as a diet and exercise regimen to aid in slowing progression of vascular disease 06/28/2024 Unspecified atherosclerosis of [place] arteries of extremities, bilateral legs (ICD-10 - I70.203) Patient educated on risks and aggravating factors of PVD, including conservative treatment options such as a diet and exercise regimen to aid in slowing progression of vascular disease 04/26/2024 Unspecified atherosclerosis of [place] arteries of extremities, bilateral legs (ICD-10 - I70.203) Patient educated on risks and aggravating factors of PVD, including conservative treatment options such as a diet and exercise regimen to aid in slowing progression of vascular disease 09/13/2024 Type 2 diabetes mellitus with other circulatory complications (ICD-10 - E11.59) Diabetic Foot Care: The patient was educated on diabetes and the lower extremity. The patient was instructed to check his feet daily to report any problems or signs of infection immediately. The patient was provided written information on Diabetic Foot Care as well as the Amputation Prevention Guide. 12/06/2024 Type 2 diabetes mellitus with other circulatory complications (ICD-10 - E11.59) Diabetic Foot Care: The patient was educated on diabetes and the lower extremity. The patient was instructed to check his feet daily to report any problems or signs of infection immediately. The patient was provided written information on Diabetic Foot Care as well as the Amputation Prevention Guide. Plan Of Treatment Next Appt Details Provider Name:RIRI ELIZALDE, 02/07/2025 08:30:00 AM, [address] [facility], [place], [place], [id number], Insurance Providers Payer Name Payer Address Payer Phone Subscriber Number Group Number Insured Name Patient Relationship to Insured Coverage Start Date Coverage End Date [facility] [address] [address] [place], [place] [id number] LILY VALENCIA Self - patient is the insured Medical (General) History Medical History History ICD Code neuropathy Cancer (type of cancer) Leg/Feet cramps Diabetic varicose veins hypertension Surgical History Surgery Date(Month/Year) colon caner surgery breast cancer surgery
[2025-01-26 09:20] LABS: Hemoglobin A1C 7.6 % (<5.7)
[2025-01-26 10:07] LABS: Alanine Aminotransferase 32 U/L (6-35); Albumin Level 4.3 g/dL (3.5-5.1); Alkaline Phosphatase 85 U/L (38-126); Anion Gap 3 mmol/L (4-12); Aspartate Amino Transferase 24 U/L (14-36); Bilirubin,Total 1.4 mg/dL (0.2-1.3); Blood Urea Nitrogen 20 mg/dL (7-17); Calcium 9.3 mg/dL (8.4-10.2); Carbon Dioxide 30 mmol/L (22-30); Chloride 104 mmol/L (98-107); Cholesterol 157 mg/dL (0-200); Estimated Glomerular Filt Rate > 60; Glucose 192 mg/dL (65-110); HDL Direct 43 mg/dL; Osmolality Calculated 291 mOsm/kg (285-295); Potassium 4.6 mmol/L (3.4-5.0); Sodium 137 mmol/L (137-145); Total Protein 6.6 g/dL (6.3-8.2); Triglycerides 140 mg/dL (<150)
== END 2025-01-26 08:45 | disposition home or self-care (01) ==
LOC: CHSLAB 08:46
PROVIDERS: PCP Internal Medicine; Visit Provider Internal Medicine
DX: I10 Essential (primary) hypertension (principal); E11.9 Type 2 diabetes mellitus without complications; E78.5 Hyperlipidemia, unspecified
CPT/HCPCS: 36415; 80053; 80061; 83036

== ENCOUNTER 2025-05-03 13:45 | Outpatient (CLI) | payer MEDICARE, SELFPAY ==
--- NOTE | ~2025-05-03 | CT_ITS ---
EXAMINATION: CT_LELTCWO_CT DATE: 05/03/2025 13:56 INDICATION: Left knee osteoarthritis. Preoperative planning. TECHNIQUE: Computed tomography (CT) of the left lower limb was performed without intravenous contrast. Automated exposure control and iterative reconstruction technique were employed. The dose-length product was 1751.21 mGy-cm. COMPARISON: Left knee radiographs 01/17/2025 FINDINGS: Varicose veins are noted. Alignment is normal. No fracture. There is moderate left hip osteoarthritis. The knee demonstrates severe osteoarthritis of the medial compartment, mild osteoarthritis of lateral compartment, and moderate osteoarthritis of the patellofemoral compartment. No knee joint effusion. IMPRESSION: 1. Severe left knee osteoarthritis. 2. Moderate left hip osteoarthritis. Reviewed, dictated and finalized at location E.
--- NOTE | 2025-05-03 13:59 | ECG_ITS ---
Test Date: 2025-05-03 14:08:46 Measurements Intervals [place] Rate: 63 P: 82 RI: 162 QRS: 57 QRSD: 135 T: 4 QT: 414 QTc: 424 Interpretive Statements SINUS RHYTHM RIGHT BUNDLE BRANCH BLOCK ABNORMAL ECG No previous ECG available for comparison Electronically Signed On 05-03-2025 14:27:16 CDT by Vishal Faulkner D.O.
[2025-05-03 14:48] LABS: Hematocrit 40.2 % (37.0-47.0); Hemoglobin 13.4 g/dL (12.0-15.0)
[2025-05-03 15:02] LABS: Albumin Level 4.5 g/dL (3.5-5.1); Estimated Glomerular Filt Rate > 60; Glucose 225 mg/dL (65-110)
[2025-05-03 15:10] LABS: Hemoglobin A1C 7.4 % (<5.7)
== END 2025-05-03 13:46 | disposition home or self-care (01) ==
PROVIDERS: PCP Internal Medicine; Visit Provider Orthopaedic Surgery
DX: M17.12 Unilateral primary osteoarthritis, left knee (principal); E11.9 Type 2 diabetes mellitus without complications; Z01.818 Encounter for other preprocedural examination; K76.0 Fatty (change of) liver, not elsewhere classified; N28.89 Other specified disorders of kidney and ureter; I10 Essential (primary) hypertension; M16.12 Unilateral primary osteoarthritis, left hip
CPT/HCPCS: 36415; 73700; 82040; 82565; 82947; 83036; 85014; 85018; 93005

== ENCOUNTER 2025-07-10 13:44 | Outpatient (CLI) | payer MEDICARE, SELFPAY ==
[2025-07-10 15:15] LABS: Hematocrit 41.7 % (37.0-47.0); Hemoglobin 14.2 g/dL (12.0-15.0); Immature Granulocyte Percent A 0.4 % (0-0.5); Lymphocytes Absolute Auto 1.85 K/mm3 (0.9-3.2); Mean Corpuscular HGB Conc 34.1 g/dl (32-36); Mean Corpuscular Hemoglobin 32.3 pg (26-34); Mean Corpuscular Volume 95.0 fl (80-100); Nucleated Red Blood Cells Absolute Auto 0.000 K/mm3 (0.0-0.012); Nucleated Red Blood Cells Perc 0.0 % (0.0-0.2); Platelet Count Result 226 k/mm3 (150-375); Red Blood Count 4.39 M/mm3 (4.2-5.4); White Blood Count 7.4 K/mm3 (4.5-10.0)
[2025-07-10 15:22] LABS: Albumin Level 4.7 g/dL (3.5-5.1)
[2025-07-10 15:25] LABS: Anion Gap 9 mmol/L (4-12); Blood Urea Nitrogen 14 mg/dL (7-17); Calcium 9.7 mg/dL (8.4-10.2); Carbon Dioxide 27 mmol/L (22-30); Chloride 101 mmol/L (98-107); Estimated Glomerular Filt Rate > 60; Glucose 177 mg/dL (65-110); Potassium 4.2 mmol/L (3.4-5.0); Sodium 137 mmol/L (137-145)
[2025-07-10 16:16] LABS: Hemoglobin A1C 7.9 % (<5.7)
[2025-07-10 16:23] LABS: MRSA (PCR) NOT DETECTED (NOT DETECTE)
--- OUTSIDE RECORDS SUMMARY | 2025-07-10 16:23 | XMS_ITS ---
Author Organization [facility] Address [address] [place] [address] Care Team Providers Care Student Specialist Name Role Phone Oh Erwin MD Primary Care Provider [phone] Kunal Fritz MD Unavailable + aRdu Alvarado MD Unavailable Active Problems Problem Noted Date Diagnosed Date 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 Assessment & Plan (04/12/2025 9:18 AM CDT): Well healed Continue nasal saline once daily Follow up as needed Assessment & Plan (10/05/2024 9:56 AM CDT): Continue nasal saline twice daily Follow up in 6 months to recheck Assessment & Plan (08/24/2024 10:40 AM ANALYSIS INTERN): Right middle turbinate Nasal saline spray (Simply saline, Little Remedies, [place], [place]) 2 second sprays or 2 squeezes into each nostril while looking down over the sink, do not need to sniff in three times daily Continue to sniff in and spit out for one more week Follow up in 4-6 weeks to recheck Polyp of nasal cavity 06/01/2024 Assessment & Plan (06/01/2024 10:14 AM ANALYSIS INTERN): Ushaped pillow or Total pillow donut shape to take pressure off the Left ear Bactroban ointment to left ear twice daily If nose bleeds return, Nasal saline spray (Simply saline, Little Remedies, [place], [place]) 2 second sprays or 2 squeezes into each nostril while looking down over the sink, do not need to sniff in daily Call if no improvement in next few weeks CT sinus, consider Nasal Endoscopy with Removal of nasal polyp based on CT Sinus results Epistaxis 06/01/2024 Assessment & Plan (06/01/2024 10:14 AM ANALYSIS INTERN): Ushaped pillow or Total pillow donut shape to take pressure off the Left ear Bactroban ointment to left ear twice daily If nose bleeds return, Nasal saline spray (Simply saline, Little Remedies, [place], [place]) 2 second sprays or 2 squeezes into each nostril while looking down over the sink, do not need to sniff in daily Call if no improvement in next few weeks CT sinus, consider Nasal Endoscopy with Removal of nasal polyp based on CT Sinus results Cellulitis of left external ear 06/01/2024 Assessment & Plan (06/01/2024 10:14 AM ANALYSIS INTERN): Ushaped pillow or Total pillow donut shape to take pressure off the Left ear Bactroban ointment to left ear twice daily If nose bleeds return, Nasal saline spray (Simply saline, Little Remedies, [place], [place]) 2 second sprays or 2 squeezes into each nostril while looking down over the sink, do not need to sniff in daily Call if no improvement in next few weeks CT sinus, consider Nasal Endoscopy with Removal of nasal polyp based on CT Sinus results Screening for malignant neoplasm of colon 2019 Overview (04/25/2020): Added automatically from request for surgery [id number] History of colon cancer 05/31/2019 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 Past Treatment and Therapy Plans No past plan information found. Lifetime Dose Tracking * Chemical Lifetime Dose Automatic Entry Manual Entr y DLP 7,252 mGycm 7,252 mGycm 0 mGycm Treatment Summaries Malignant neoplasm of ascending colon (HCC)* Images from the original note were not included. [facility] [address] [place] [address] This Survivorship Care Plan is a cancer [...] General Information Patient name Trish Monique (home) [phone] (work) Date of 1950 Health Care Providers (Including Names, Institutions) Provider Name: Contact Information: Primary Care Physician Oh Erwin MD [phone] Surgeon Radu Alvarado MD [phone] Radiation Oncologist Medical Oncologist Director Treasurer Kunal Rodríguez MD [phone] Other Providers Treatment Summary Cancer Diagnosis Information [...] Medical oncology and Surgeon if both are [facility] Physicians) History and Physical every 3 months [...] Help learning to eat healthier, call the awning frame maker at: [facility] . Have an active lifestyle, strive for [...] physician. Resources you may be interested in: [facility] [place] [facility] [place] [facility] [email or web address]/ [facility] 1st floor of [facility] [phone]. Computer access, educational material, counseling services (FREE) [employer] Association: the place for ostomy resources, advocacy, and support. www.ostomy.org Ostomy nurse at [facility] can be reached at [phone] Online Resources: www.cancer.net; http://www.cdc.gov/cancer/survivorship; http://www.cancercare.org/tagged/post-treatment_survivorship; http://www.cancer.gov/about-cancer/coping/survivorship [employer]: https://survivorship.cancer.gov/ an online tool for cancer survivors andcaregivers created by the [place] [employer] and the National Cancer [place]. It provides: Information on dealing with side effects from cancer and treatment Caregivers with support and resources Practical advice about talking to friends and family about cancer Questions to ask their health care team Help understanding their rights in the workplace
--- OUTSIDE RECORDS SUMMARY | 2025-07-10 16:23 | XMS_ITS | Encounter Summary ---
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 Gender Identity Not on file Sexual Orientation Not on file documented as of this encounter Functional Status * Question Answer Date of Assessment Author MAP (mmHg) 89 05/19/2023 12:00 PM CDT Keila Vallejo RN * Son Fall Risk Question Answer Date of Assessment Author History of Falling 0 05/19/2023 11:55 AM CD T Keila Solorzano RN Secondary Diagnosis 15 05/19/2023 11:55 AM C Keila Lantigua RN Ambulatory Aids 0 05/19/2023 11:55 AM CDT Keila López RN Intravenous Therapy/Heparin/Saline Lock 20 05/19/2023 11:55 AM Keila Blackwell RN Gait/Transferring 0 05/19/2023 11:55 AM Keila Blackwell RN Mental Status 0 05/19/2023 11:55 AM MARISELAT Keila Caceres RN Morse Fall Risk Score (Score >= 45 places fall precaution order) 35 05/19/2023 11:55 AM Keila Blackwell RN Prior Fall Event (Autopopulated from EMR) None found 05/19/2023 11:55 AM Tahira Blackwell RN * Fall Risk Interventions Question Answer Date of Assessment Author All Low Fall Interventions Applied Yes 05/19/2023 11:55 AM Keila Blackwell RN * Alcohol Withdrawal BP Hierarchy Answer Date of Assessment Author 42 05/19/2023 11:55 AM Keila Blackwell RN * Alcohol Use Question Answer Date of Assessment Author Q1: How often do you have a drink containing alcohol? Never 05/19/2023 10:17 AM MARISELAT Freida Powell RN * Integumentary Question Answer Date of Assessment Author Integumentary (WDL) [facility] 05/19/2023 11:55 AM C Keila Lantigua RN * Fall Risk Interventions Question Answer Date of Assessment Author All Low Fall Interventions Applied Yes 05/19/2023 11:55 AM Keila Blackwell RN documented as of this encounter Mental Status * Question Answer Entry Date Author Level of Consciousness Drowsy 05/19/2023 12:00 P M Keila Blackwell RN Neuro (WDL) WDL 05/19/2023 12:10 PM CDT Be rosas, Keila Kumar, CLAIRE documented in this encounter Plan of Treatment Not on file documented as of this encounter Visit Diagnoses Not on filedocumented in this encounter Care Teams Video Network Engineer Relationship Specialty Start Date End Date Oh Erwin MD PCP - General Internal Medicine 03/09/19 Kunal Fritz MD Laborer [employer] Gastroenterology 04/03/19 Radu Alvarado MD Surgeon Colon and Rectal Surgery 05/30/19 documented as of this encounter
--- OUTSIDE RECORDS SUMMARY | 2025-07-10 16:23 | XMS_ITS | Clinical Summary ---
Author Organization [facility], formerly [facility] Address [address] [place] [address] Care Team Providers Care Beet Worker Name Role Phone Oh Erwin MD Primary Care Provider Kunal Fritz MD Unavailable + Radu Alvarado MD Unavailable Allergies Active Allergy Reactions Criticality Noted Date Comments Penicillins Rash Medium 04/03/2019 Sulfa (Sulfonamide Antibiotics) Hives,Rash Medium 03/25 Medications atenolol (TENORMIN) 25 mg tablet TAKE 1 TABLET BY MOUTH EVERYDAY AT BEDTIME FOR BLOOD PRESSURE 1 03/31/2019 Active atorvastatin (LIPITOR) 20 mg tablet Take 1 tablet (20 mg total) by mouth nightly 1 03/31/2019 Active metFORMIN XR (GLUCOPHAGE XR) 500 mg 24 hr tablet Take 2 tablets (1,000 mg total) by mouth nightly 1 03/29/2019 Active spironolactone (ALDACTONE) 25 mg tablet Take 1 tablet (25 mg total) by mouth every morning Active magnesium glycinate 100 mg tablet Take 450 mg by mouth daily Active Active Problems Problem Noted Date Diagnosed Date 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 Assessment & Plan (04/12/2025 9:18 AM CDT): Well healed Continue nasal saline once daily Follow up as needed Assessment & Plan (10/05/2024 9:56 AM CDT): Continue nasal saline twice daily Follow up in 6 months to recheck Assessment & Plan (08/24/2024 10:40 AM CHIROPRACTOR ASSISTANT): Right middle turbinate Nasal saline spray (Simply saline, Little Remedies, [place], [place]) 2 second sprays or 2 squeezes into each nostril while looking down over the sink, do not need to sniff in three times daily Continue to sniff in and spit out for one more week Follow up in 4-6 weeks to recheck Polyp of nasal cavity 06/01/2024 Assessment & Plan (06/01/2024 10:14 AM CHIROPRACTOR ASSISTANT): Ushaped pillow or Total pillow donut shape to take pressure off the Left ear Bactroban ointment to left ear twice daily If nose bleeds return, Nasal saline spray (Simply saline, Little Remedies, [place], [place]) 2 second sprays or 2 squeezes into each nostril while looking down over the sink, do not need to sniff in daily Call if no improvement in next few weeks CT sinus, consider Nasal Endoscopy with Removal of nasal polyp based on CT Sinus results Epistaxis 06/01/2024 Assessment & Plan (06/01/2024 10:14 AM CHIROPRACTOR ASSISTANT): Ushaped pillow or Total pillow donut shape to take pressure off the Left ear Bactroban ointment to left ear twice daily If nose bleeds return, Nasal saline spray (Simply saline, Little Remedies, [place], [place]) 2 second sprays or 2 squeezes into each nostril while looking down over the sink, do not need to sniff in daily Call if no improvement in next few weeks CT sinus, consider Nasal Endoscopy with Removal of nasal polyp based on CT Sinus results Cellulitis of left external ear 06/01/2024 Assessment & Plan (06/01/2024 10:14 AM CHIROPRACTOR ASSISTANT): Ushaped pillow or Total pillow donut shape to take pressure off the Left ear Bactroban ointment to left ear twice daily If nose bleeds return, Nasal saline spray (Simply saline, Little Remedies, [place], [place]) 2 second sprays or 2 squeezes into each nostril while looking down over the sink, do not need to sniff in daily Call if no improvement in next few weeks CT sinus, consider Nasal Endoscopy with Removal of nasal polyp based on CT Sinus results Screening for malignant neoplasm of colon 2019 Overview (04/25/2020): Added automatically from request for surgery [id number] History of colon cancer 05/31/2019 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 Overview (04/04/2019): Added automatically from request for surgery [id number] Malignant neoplasm of ascending colon 04/03/2019 Encounters Date Type Department Care Team Description 04/12/2025 9:00 AM CDT Office Visit [facility] - [address] [id number] Tabitha Giles, DO Hemangioma of other sites (Primary Dx) from Last 3 Months Immunizations Immunization Administration Dates Next Due Influenza, Trivalent, High D ose, Split, Preservative Free, Intramuscular 04/26/2019 Surgical History Surgery Date Site/Laterality Comments BREAST SURGERY 07/25/2006 - 07/24/2007 MELANOMA RESECTION 07/25/1991 - 07/24/1992 CERVICAL POLYPECTOMY COLON SURGERY 04/25/2019 Laparoscopic-assisted right colectomy COLONOSCOPY 05/29/2020 Medical History Medical History Date Comments Hypertension Diabetes mellitus Breast cancer (HCC) Melanoma (HCC) right ankle Anemia Type 2 diabetes mellitus Colon cancer (HCC) Family History Medical History [...] on file Legal Sex Female 6:36 PM CHIROPRACTOR ASSISTANT Gender Identity Not on file Sexual Orientation Not on file Last Filed Vital Signs Vital Sign Reading Time Taken Comments Blood Pressure 127/56 08/16/2024 2:30 PM CHIROPRACTOR ASSISTANT Pulse 68 08/16/2024 2:30 PM CHIROPRACTOR ASSISTANT Temperature 36.3 C (97.4 F) 08/16/2024 1:58 PM CHIROPRACTOR ASSISTANT Respiratory Rate 20 08/16/2024 2:30 PM CHIROPRACTOR ASSISTANT Oxygen Saturation 94% 08/16/2024 2:30 PM CHIROPRACTOR ASSISTANT Inhaled Oxygen Concentration - - Weight 81.4 kg (179 lb 7.3 oz) 08/16/2024 8:29 A M CHIROPRACTOR ASSISTANT Height 165.1 cm (5' 5) 08/16/2024 8:29 AM CHIROPRACTOR ASSISTANT Body Mass Index 29.86 08/16/2024 8:29 AM CHIROPRACTOR ASSISTANT Plan of Treatment Health Maintenance Due Date Last Done Comments Depression Screening 1950 Hepatitis C Screening 1950 Osteoporosis Screening-Bone Density Scan 1950 DTaP/Tdap/Td Vaccine (1 - Tdap) 1959 Hepatitis B Screening 1966 Zoster Vaccine (1 of 2) 1998 Well Visit 65+ 2013 Pneumococcal vaccine 65+ (3 of 3 - PCV20 or PCV21) 06/25/2020 06/25/2015, 07/25/2007 Fall Risk Assessment 05/19/2024 05/19/2023 Influenza Vaccine (#1) 2025 9, 05/31/2016, 05/31/2015, Additional history exists Colon Cancer Screening-CT Colonography Discontinued 05/19/2023, 05/29/2020 Colon Cancer Screening-Colonoscopy Discontinued 05/19/2023, 05/29/2020 Colon Cancer Screening-DNA Stool Discontinued 05/19/20 23, 05/29/2020 Colon Cancer Screening-FIT Discontinued 05/19/2023, Colon Cancer Screening-FOBT Discontinued 05/19/2023, 1 07/29/2019 Colon Cancer Screening-Sigmoidoscopy Discontinued 05/19/2023, 05/29/2020 Colorectal Cancer Screening Discontinued Medical Devices Implanted Type Area Floor Worker Well Service Device Identifier Shelf Expiration Date Model / Serial / Lot Breast Breast Bilateral: Breast Procedures Procedure Name Priority Date/Time Associated Diagnosis Comments COLONOSCOPY 05/19/2023 11:10 AM CDT from Last 3 Months or Most Recently Relevant to Health Maintenance Results * COLONOSCOPY (05/19/2023 11:10 AM CDT) Anatomical Region Laterality Modality Other Narrative Procedure Note Radu Alvarado MD - 05/19/2023 11:10 AM CDT [facility] Patient Name: Trish Monique Procedure Date: 05/19/2023 11:10AM Date of : 1950 Admit Type: Outpatient Age: 72 Gender: Female Attending MD: Radu Alvarado M.D. Room: [facility] ENDOSCOPY ROOM 02 Note Status: Finalized Procedure: [...] The scope was passed under direct vision.The [id number] was introduced through the anusand advanced to the the ileocolonic anastomosis. The quality of the bowel preparation was excellent. The quality of the bowel preparation was evaluatedusing the BBPS ([place] Bowel Preparation Scale) withscores of: Right Colon [...] years for surveillance. Electronically signed by Dr.Matthew Chritsiano M.D. Radu Alvarado M.D. 05/19/2023 12:02:29 PM . Number of Addenda: 0 Note Initiated On: 05/19/2023 11:10 AM Recognized by the [place] [employer] for promoting quality in endoscopy us Radu Alvarado MD ENDOSCOPY PROCEDURES Final R esult from Last 3 Months or Most Recently Relevant to Health Maintenance Insurance COMMERCIAL GENERIC MEDICARE [facility] Address: [facility] [address] [place] [address] [facility] MEDICARE [place] [address] COMMERCIAL GENERIC Advance Directives For more information, please contact: [phone] * Full Code (Latest Code Status on File) Date Activated Date Inactivated Comments 05/19/2023 10:55 AM 05/19/2023 4:24 PM * Full Code Date Activated Date Inactivated Comments 05/29/2020 9:26 AM 05/29/2020 3:37 PM * Full Code Date Activated Date Inactivated Comments 04/25/2019 6:38 PM 04/29/2019 4:23 PM Care Teams Beet Worker Relationship Specialty Start Date End Date Oh Erwin MD PCP - General Internal Medicine 03/09/19 Kunal Fritz MD Formula Checker Gastroenterology 04/03/19 Radu Alvarado MD Surgeon Colon and Rectal Surgery 05/30/19
--- OUTSIDE RECORDS SUMMARY | 2025-07-10 16:23 | XMS_ITS | Clinical Summary ---
Author Organization [facility] Address [address] [place] [id number] Care Team Providers Care Internal Controls Analyst Name Role Phone Unavailable Primary Care Provider [...] 75+ series) 2023 COVID-19 Vaccine ( - 2024-2 6 season) 2025 Influenza Adult (#1) 2025 Hepatitis A Vaccines Aged Out No long er eligible based on patient's age to complete this topic Meningococcal B Vaccine Aged Out No l onger eligible based on patient's age to complete this topic Meningococcal Vaccine Aged Out No eusebia angus eligible based on patient's age to complete this topic RSV Immunizations Under 20 Months Aged Out No longer eligible based on patient's age to complete this topic
== END 2025-07-10 13:45 | disposition home or self-care (01) ==
PROVIDERS: Anesthesiology; PCP Internal Medicine; Visit Provider Orthopaedic Surgery
DX: Z01.818 Encounter for other preprocedural examination (principal); M17.11 Unilateral primary osteoarthritis, right knee; E11.9 Type 2 diabetes mellitus without complications
CPT/HCPCS: 36415; 80048; 80307; 82040; 83036; 85025; 87641